=== PATIENT | female | born 1955 | race Caucasian/White ===

== ENCOUNTER → 2016-10-26 | Day surgery (SDC) | payer BC ==
[2016-10-05 10:13] VITALS: Ht 162.6 cm; Wt 90.9 kg
[~2016-10-26] VITALS: Ht 162.6 cm; Wt 90.9 kg
[~2016-10-26] MED LIST: 500ML BSS 0.3ML EPI 1:1000PF IRRIG ONE; ACETAMINOPHEN 325 MG TAB PO PRN; AMVISC PLUS 0.8ML SYRINGE INT OCU ONE; ATROPINE SULFATE 0.1 MG/ML 5ML SYR IV PRN; DOFE500C PO; EpHEDrine SULFATE INJ 50 MG/ML AMP IV PRN; EpINEphrine INJ 1MG/ML AMP 1 MG/ML AMP ONE; FENTANYL CITRATE INJ 50 MCG/1 ML 2 ML VIAL ONE; LACTATED RINGER'S 1000ML 500 ML IV SCH; LIDOCAINE 3.5% OPH GEL PER APPLICATION CHARGE ONE; LIDOCAINE HCL 1% MPF 2 ML VIAL ONE; MECL1TAB40 PO; METO25TA3 PO; MIDAZOLAM HCL 1 MG/ML 2ML VIAL ONE; OCUCOAT 1 ML SOLN IO ONE; POVIDONE-IODINE OP SOLN 30 ML BTL ONE; PROPARACAINE 0.5% OP SOLN PER DROP CHARGE OPR SCH; PRT/20 PO; RIVA1TAB4 PO; SODIUM HYALURONATE 10 MG/ML 0.85 ML SYR INSTIL ONE; TOBRAMYCIN/DEXAMETHASONE OPH OINT PER APPLN CHARGE ONE
[2016-10-26] MEDS: PHENYLEPHRINE HCL 2.5% OP SOLN PER DROP CHARGE OPR SCH ×2 (10:48→10:52)
[2016-10-26] MEDS: TROPICAMIDE 1% OP SOLN PER DROP CHARGE OPR SCH ×2 (10:49→10:54)
[2016-10-26] MEDS: CYCLOPENTOLATE HCL 1% OP SOLN PER DROP CHARGE OPR SCH ×2 (10:49→10:54)
[2016-10-26] MEDS: KETOROLAC 0.5% OP SOLN PER DROP CHARGE OPR SCH ×2 (10:50→10:55)
[2016-10-26] MEDS: GATIFLOXACIN OP SOLN PER DROP CHARGE OPR SCH ×2 (10:51→11:02)
--- NOTE | 2016-10-26 11:11 | History & Physical Bridge - [place] ---
H&P Re-Evaluation Bridge Note: I have examined the patient, reviewed the History & Physical and in the interval since the performance of the History & Physical I have noted the following changes of clinical significance: No changes noted
--- NOTE | 2016-10-26 11:45 | Discharge Instructions-SurgCtr ---
Discharge Instructions Date of Service Oct 26, 2016. Visit Reason for Visit: Cataract Right Eye Discharge Discharge Diagnosis / Problem: cataract Discharge Goals Goal(s): Improve function Activity Recommendations Activity Limitations: per Instructions/Follow-up section Anesthesia . Post Anesthesia Instructions: If you have had General Anesthesia or IV Sedation: * Do not drive today. * Resume driving when surgeon permits. * Do not make important decisions or sign legal documents today. * Call surgeon for: 1. Temperature elevations greater than 101 degrees F. 2. Uncontrollable pain. 3. Excessive bleeding. 4. Persistent nausea and vomiting. 5. Medication intolerance (nausea, vomiting or rash). * For nausea and vomiting use only clear liquids such as: tea, soda, bouillon until nausea subsides, then gradually increase diet as tolerated. * If you have any concerns or questions, call your surgeon's office. If physician is unavailable and it is an emergency, call 911 or go to the nearest emergency room. . Instructions / Follow-Up Instructions / Follow-Up ACTIVITY RECOMMENDATIONS: * No strenuous lifting, jogging or running for 4 days * No swimming or yard work for 1 week. * Limited bending is permitted, such as putting on shoes. RETURN TO SCHOOL/WORK: No work until seen by physician in office. MEDICATIONS: Resume previous medications unless instructed otherwise by your surgeon. This includes eye drops for glaucoma. Zymaxid/Gatifloxacin (wallace cap) - one drop every 2 hours until bedtime Nevanac/Ilevro/Prolensa/Ketorolac (mendoza cap) - one drop every 4 hours until bedtime Prednisolone (white/pink cap, SHAKE WELL) - one drop every 2 hours until bedtime Starting tomorrow - all 3 drops every 4 hours until seen in the office Optive drops - as needed for discomfort SPECIAL CARE INSTRUCTIONS: * Wear eyeshield when sleeping, for four nights. * You may wear your own glasses or sunglasses while awake. * You may read or watch TV * You may shower and wash your face, but be gentle around the eye and pat dry. * Blurry vision and mild irritation are normal. * Call office if pain is more severe or vision becomes dark at . FOLLOW UP VISIT: Follow-up with Dr Duran tomorrow. Diet Recommendations Home Diet: resume previous diet Procedures Procedures Performed: Right Cataract Phacoemulsification With Intraocular Lens Implant; Toric Lens Pending Studies Studies pending at discharge: no Medical Emergencies . Who to Call and When: Medical Emergencies: If at any time you feel your situation is an emergency, please call 911 immediately. . Non-Emergent Contact Non-Emergency issues call your: Email Campaign Specialist . . "Provider Documentation" section prepared by Balaji Duran. .
--- NOTE | 2016-10-26 11:47 | [facility] Operative Report ---
Operative Report Date of Service Oct 26, 2016. Operative Report 1. PREOPERATIVE DIAGNOSIS: Cataract of the right eye. 2. POSTOPERATIVE DIAGNOSIS: Same. 3. PROCEDURE: Phacoemulsification with intraocular lens implantation of the right eye. SURGEON: Dr. Balaji Duran. ANESTHESIA: Topical Lidocaine gel, 1% Non- Preserved intracameral Lidocaine, and monitored intravenous sedation. INDICATIONS FOR THE PROCEDURE: The patient is a 61 - year-old female with a history of cataract of the right eye causing significant visual impairment. The details of the proposed procedure were explained to the patient who asked appropriate questions and following discussion of all risks, benefits and alternatives agreed to have the procedure done. Patient had corneal astigmatism and therefore elected to have a toric lens placed. 4. OPERATION AND FINDINGS: DESCRIPTION OF PROCEDURE: After informed consent was obtained, patient was placed in an upright position and the cornea was marked at 118 degrees using the [employer] corneal marking tool. The the patient was brought to the Operating Room at the [facility]. The patient was placed in a supine position and then the right eye was prepped and draped in the usual sterile fashion for intraocular surgery. A drop of topical Lidocaine gel was placed in the operative eye. A wire lid speculum was then placed in the fornices. A corneal paracentesis was then created temporally. The Non-Preserved Lidocaine was then instilled into the anterior chamber. The anterior chamber was then pressurized with viscoelastic. A 2.0 mm clear corneal incision was then created temporally. A cystotome was inserted into the anterior chamber and used to create a tear in the anterior lens capsule. This capsular tear was then used to create a small flap and the flap was dragged in a counterclockwise direction in order to create a continuous curvilinear capsulorrhexis. Hydrodissection was accomplished with balanced salt solution. Phacoemulsification of the lens nucleus was then performed in a standard divide- and-conquer technique. The phaco time was 21 seconds with an average power of 8 %. The remaining cortical material was removed using irrigation aspiration. The capsular bag was then filled with viscoelastic. A Roberto [id number] +19.5 diopters lens was then loaded into the injector and injected into the capsular bag. The lens was aligned with the previously made corneal farmer. The remaining viscoelastic was removed with the irrigation aspiration handpiece. The wound was hydrated and then checked and found to be watertight. The intraocular pressure was checked and found to be adequate. The wire lid speculum was removed and the patient's face was cleaned and dried. TobraDex ointment was placed in the inferior fornix. The patient was discharged to the Recovery Room having tolerated the procedure well. There were no complications. The patient will be seen tomorrow in the office for follow-up. I attest to the content of the Intraoperative Record and any orders documented therein. Any exceptions are noted below.
[2016-10-26 11:49] VITALS: TEMP 36.6
[2016-10-26 12:09] VITALS: BP 132/81; PULSE 74; O2SAT 98
--- NOTE | 2016-11-03 08:30 | Anesthesia Progress Nt - [facility] ---
Anesthesia Post Op Note Date & Time Nov 03, 2016 at 08:31 Vital Signs Pain Intensity: 0 Notes Mental Status: alert / awake / arousable, participated in evaluation Pt Amnestic to Procedure: Yes Nausea / Vomiting: adequately controlled Pain: adequately controlled Airway Patency, RR, SpO2: stable & adequate BP & HR: stable & adequate Hydration State: stable & adequate Anesthetic Complications: no major complications apparent
== END | disposition home or self-care (01) ==
LOC: X.SURG 10:20
PROVIDERS: ATTEND Ophthalmology
DX: H26.9 Unspecified cataract (principal); K21.9 Gastro-esophageal reflux disease without esophagitis; E66.9 Obesity, unspecified; Z68.34 Body mass index [BMI] 34.0-34.9, adult; G47.33 Obstructive sleep apnea (adult) (pediatric); Z79.01 Long term (current) use of anticoagulants; Z98.890 Other specified postprocedural states; Z98.818 Other dental procedure status; Z85.828 Personal history of other malignant neoplasm of skin; Z87.891 Personal history of nicotine dependence; Z88.1 Allergy status to other antibiotic agents; Z88.2 Allergy status to sulfonamides; Z88.0 Allergy status to penicillin; Z88.7 Allergy status to serum and vaccine; Z83.3 Family history of diabetes mellitus; Z82.49 Family history of ischemic heart disease and other diseases of the circulatory system; Z80.52 Family history of malignant neoplasm of bladder

== ENCOUNTER → 2016-11-09 | Day surgery (SDC) | payer BC ==
[2016-11-04 13:40] VITALS: Ht 162.6 cm; Wt 90.9 kg
[~2016-11-09] VITALS: Ht 162.6 cm; Wt 90.9 kg
[~2016-11-09] MED LIST changes: +BSS FLUSH ONE; -FENTANYL CITRATE INJ 50 MCG/1 ML 2 ML VIAL ONE; +PROPARACAINE 0.5% OP SOLN PER DROP CHARGE OPL SCH; -PROPARACAINE 0.5% OP SOLN PER DROP CHARGE OPR SCH; -SODIUM HYALURONATE 10 MG/ML 0.85 ML SYR INSTIL ONE
[2016-11-09] MEDS: PHENYLEPHRINE HCL 2.5% OP SOLN PER DROP CHARGE OPL SCH ×2 (10:01→10:07)
[2016-11-09] MEDS: TROPICAMIDE 1% OP SOLN PER DROP CHARGE OPL SCH ×2 (10:02→10:08)
[2016-11-09] MEDS: CYCLOPENTOLATE HCL 1% OP SOLN PER DROP CHARGE OPL SCH ×2 (10:04→10:09)
[2016-11-09] MEDS: KETOROLAC 0.5% OP SOLN PER DROP CHARGE OPL SCH ×2 (10:05→10:10)
[2016-11-09] MEDS: GATIFLOXACIN OP SOLN PER DROP CHARGE OPL SCH ×2 (10:06→10:11)
--- NOTE | 2016-11-09 11:11 | Discharge Instructions-SurgCtr ---
Discharge Instructions Date of Service Nov 09, 2016. Visit Reason for Visit: Left Cataract Discharge Discharge Diagnosis / Problem: cataract Discharge Goals Goal(s): Improve function Activity Recommendations Activity Limitations: per Instructions/Follow-up section Anesthesia . Post Anesthesia Instructions: If you have had General Anesthesia or IV Sedation: * Do not drive today. * Resume driving when surgeon permits. * Do not make important decisions or sign legal documents today. * Call surgeon for: 1. Temperature elevations greater than 101 degrees F. 2. Uncontrollable pain. 3. Excessive bleeding. 4. Persistent nausea and vomiting. 5. Medication intolerance (nausea, vomiting or rash). * For nausea and vomiting use only clear liquids such as: tea, soda, bouillon until nausea subsides, then gradually increase diet as tolerated. * If you have any concerns or questions, call your surgeon's office. If physician is unavailable and it is an emergency, call 911 or go to the nearest emergency room. . Instructions / Follow-Up Instructions / Follow-Up ACTIVITY RECOMMENDATIONS: * No strenuous lifting, jogging or running for 4 days * No swimming or yard work for 1 week. * Limited bending is permitted, such as putting on shoes. RETURN TO SCHOOL/WORK: No work until seen by physician in office. MEDICATIONS: Resume previous medications unless instructed otherwise by your surgeon. This includes eye drops for glaucoma. Zymaxid/Gatifloxacin (wallace cap) - one drop every 2 hours until bedtime Nevanac/Ilevro/Prolensa/Ketorolac (mendoza cap) - one drop every 4 hours until bedtime Prednisolone (white/pink cap, SHAKE WELL) - one drop every 2 hours until bedtime Starting tomorrow - all 3 drops every 4 hours until seen in the office Optive drops - as needed for discomfort SPECIAL CARE INSTRUCTIONS: * Wear eyeshield when sleeping, for four nights. * You may wear your own glasses or sunglasses while awake. * You may read or watch TV * You may shower and wash your face, but be gentle around the eye and pat dry. * Blurry vision and mild irritation are normal. * Call office if pain is more severe or vision becomes dark at . FOLLOW UP VISIT: Follow-up with Dr Duran tomorrow. Diet Recommendations Home Diet: resume previous diet Procedures Procedures Performed: Left Eye Cataract Phacoemulsification With Intraocular Lens Implant Pending Studies Studies pending at discharge: no Medical Emergencies . Who to Call and When: Medical Emergencies: If at any time you feel your situation is an emergency, please call 911 immediately. . Non-Emergent Contact Non-Emergency issues call your: Printed Circuit Board Panels Plater . . "Provider Documentation" section prepared by Balaji Duran. .
--- NOTE | 2016-11-09 11:12 | [facility] Operative Report ---
Operative Report Date of Service Nov 09, 2016. Operative Report 1. PREOPERATIVE DIAGNOSIS: Cataract of the left eye. 2. POSTOPERATIVE DIAGNOSIS: Same. 3. PROCEDURE: Phacoemulsification with intraocular lens implantation of the left eye. SURGEON: Dr. Balaji Duran. ANESTHESIA: Topical Lidocaine gel, 1% Non- Preserved intracameral Lidocaine, and monitored intravenous sedation. INDICATIONS FOR THE PROCEDURE: The patient is a 61 - year-old female with a history of cataract of the left eye causing significant visual impairment. The details of the proposed procedure were explained to the patient who asked appropriate questions and following discussion of all risks, benefits and alternatives agreed to have the procedure done. 4. OPERATION AND FINDINGS: DESCRIPTION OF PROCEDURE: After informed consent was obtained, the patient was brought to the Operating Room at the [facility]. The patient was placed in a supine position and then the left eye was prepped and draped in the usual sterile fashion for intraocular surgery. A drop of topical Lidocaine gel was placed in the operative eye. A wire lid speculum was then placed in the fornices. A corneal paracentesis was then created temporally. The Non-Preserved Lidocaine was then instilled into the anterior chamber. The anterior chamber was then pressurized with viscoelastic. A 2.0 mm clear corneal incision was then created temporally. A cystotome was inserted into the anterior chamber and used to create a tear in the anterior lens capsule. This capsular tear was then used to create a small flap and the flap was dragged in a counterclockwise direction in order to create a continuous curvilinear capsulorrhexis. Hydrodissection was accomplished with balanced salt solution. Phacoemulsification of the lens nucleus was then performed in a standard [id number] technique. The phaco time was 19 seconds with an average power of 9 %. The remaining cortical material was removed using irrigation aspiration. The capsular bag was then filled with viscoelastic. A Roberto [id number] +18.5 diopters lens was then loaded into the injector and injected into the capsular bag. The remaining viscoelastic was removed with the irrigation aspiration handpiece. The wound was hydrated and then checked and found to be watertight. The intraocular pressure was checked and found to be adequate. The wire lid speculum was removed and the patient's face was cleaned and dried. TobraDex ointment was placed in the inferior fornix. The patient was discharged to the Recovery Room having tolerated the procedure well. There were no complications. The patient will be seen tomorrow in the office for follow-up. I attest to the content of the Intraoperative Record and any orders documented therein. Any exceptions are noted below.
[2016-11-09 11:15] VITALS: TEMP 36.7
--- NOTE | 2016-11-09 11:22 | Anesthesia Progress Nt - [facility] ---
Anesthesia Post Op Note Date & Time Nov 09, 2016 at 11:21 Vital Signs Pain Intensity: 0 Vital Signs Past 12 Hours Date Time Temp Pulse Resp B/P (MAP) Pulse Ox O2 Delivery O2 Flow Rate FiO2 11/09/16 11:15 36.7 67 16 132/84 (100) 97 Room Air 11/09/16 09:54 37.0 73 16 150/84 (106) 99 Room Air Notes Mental Status: alert / awake / arousable, participated in evaluation Pt Amnestic to Procedure: No Nausea / Vomiting: adequately controlled Pain: adequately controlled Airway Patency, RR, SpO2: stable & adequate BP & HR: stable & adequate Hydration State: stable & adequate Anesthetic Complications: no major complications apparent Non distressing recall as discussed preop
[2016-11-09 11:30] VITALS: BP 123/80; PULSE 76; O2SAT 97
== END | disposition home or self-care (01) ==
LOC: X.SURG 09:27
PROVIDERS: ATTEND Ophthalmology
DX: H26.9 Unspecified cataract (principal); I10 Essential (primary) hypertension; Z98.41 Cataract extraction status, right eye; I48.91 Unspecified atrial fibrillation; Z79.01 Long term (current) use of anticoagulants; E66.9 Obesity, unspecified; Z68.34 Body mass index [BMI] 34.0-34.9, adult; M19.90 Unspecified osteoarthritis, unspecified site; G47.33 Obstructive sleep apnea (adult) (pediatric); Z98.890 Other specified postprocedural states; Z88.0 Allergy status to penicillin; Z88.2 Allergy status to sulfonamides; Z88.1 Allergy status to other antibiotic agents

== ENCOUNTER → 2016-11-26 | Outpatient (CLI) | payer BC ==
[~2016-11-26] MED LIST changes: -500ML BSS 0.3ML EPI 1:1000PF IRRIG ONE; -ACETAMINOPHEN 325 MG TAB PO PRN; -AMVISC PLUS 0.8ML SYRINGE INT OCU ONE; -ATROPINE SULFATE 0.1 MG/ML 5ML SYR IV PRN; -BSS FLUSH ONE; -EpHEDrine SULFATE INJ 50 MG/ML AMP IV PRN; -EpINEphrine INJ 1MG/ML AMP 1 MG/ML AMP ONE; -LACTATED RINGER'S 1000ML 500 ML IV SCH; -LIDOCAINE 3.5% OPH GEL PER APPLICATION CHARGE ONE; -LIDOCAINE HCL 1% MPF 2 ML VIAL ONE; -MIDAZOLAM HCL 1 MG/ML 2ML VIAL ONE; -OCUCOAT 1 ML SOLN IO ONE; -POVIDONE-IODINE OP SOLN 30 ML BTL ONE; -PROPARACAINE 0.5% OP SOLN PER DROP CHARGE OPL SCH; -TOBRAMYCIN/DEXAMETHASONE OPH OINT PER APPLN CHARGE ONE
== END | disposition home or self-care (01) ==
LOC: C.PAPS 14:44
PROVIDERS: ATTEND Obstetrics & Gynecology
DX: Z01.419 Encounter for gynecological examination (general) (routine) without abnormal findings (principal)

== ENCOUNTER → 2016-12-28 | Outpatient (CLI) | payer BC ==
--- NOTE | 2016-12-29 07:43 | MAMMOGRAPHY REPORT ---
BILATERAL DIGITAL SCREENING MAMMOGRAM WITH CAD: 12/28/2016 CLINICAL HISTORY: Routine screening. Patient has no complaints. TECHNIQUE: Bilateral CC, MLO and repeat right cc views with the nipple in profile were obtained. Cur rent study was also evaluated with a Computer Aided Detection (CAD) system. COMPARISON: Comparison is made to exams dated: 11/05/2015 mammogram, 11/01/2014 mammogram, 09/21/2013 ma mmogram, 03/28/2013 mammogram, and 09/20/2012 mammogram - [facility]. BREAST COMPOSITION: There are scattered areas of fibroglandular density in both breasts. FINDINGS: There is a new 4 mm nodular asymmetry in the far superior right breast, only seen on the M LO view, for which additional spot compression tomosynthesis, exaggerated lateral CC views and possib ly ultrasound are recommended. There are scattered punctate microcalcifications, stable in each breast. A stable metallic biopsy ma rker in the anterior subareolar left breast. No other suspicious mass, architectural distortion or c luster of microcalcifications is seen. IMPRESSION: ACR BI-RADS CATEGORY 0: INCOMPLETE EVALUATION: NEED ADDITIONAL IMAGING EVALUATION The new 4 mm nodular asymmetry in the right superior breast needs additional evaluation. The patient will be called to schedule an appointment. Approximately 10% of breast cancers are not detected with mammography. A negative mammographic report should not delay biopsy if a clinically suggestive mass is present. Viki Harris M.D. ay/:12/28/2016 15:34:09 Fisher Clam: Faina MCNAMARA(Jenni)(M), [facility] letter sent: Addl Imaging 0 BI-RADS Code: ACR BI-RADS Category 0: Incomplete Evaluation: Need Additional Imaging Evaluation
== END | disposition home or self-care (01) ==
LOC: C.MAMM 13:28
PROVIDERS: ATTEND Internal Medicine Geriatric Medicine
DX: Z12.31 Encounter for screening mammogram for malignant neoplasm of breast (principal)

== ENCOUNTER → 2017-01-03 | Outpatient (CLI) | payer BC ==
--- NOTE | 2017-01-03 14:33 | MAMMOGRAPHY REPORT ---
UNILATERAL RIGHT DIGITAL DIAGNOSTIC MAMMOGRAM TOMOSYNTHESIS AND TARGETED RIGHT ULTRASOUND: 01/03/2017 CLINICAL HISTORY: 61-year-old woman called back from screening mammography for a small, 4 mm nodular asymmetry in the superior posterior right breast, only seen on the MLO view. She has a prior history of benign left breast stereotactic biopsy. TECHNIQUE: An exaggerated lateral right CC view 2-D and tomosynthesis images and a right MLO 2-D and tomosynthesis view after placement of skin mole markers were obtained. Then additional right CC and MLO tomosynthesis images were obtained after placement of skin BB markers. COMPARISON: Comparison is made to exams dated: 12/28/2016 mammogram, 11/05/2015 mammogram, 11/01/2014 ma mmogram, and 09/21/2013 mammogram - [facility]. BREAST COMPOSITION: There are scattered areas of fibroglandular density in the right breast. FINDINGS: The supplemental mammographic views and tomosynthesis images of the right breast demonstra te a reniform circumscribed 4.3 x 3.1 x 3.0 mm mass in the upper outer posterior right breast. No as sociated architectural distortion or clustered microcalcification. This mass is not denoted by a cir cular marker marker to suggest dermal origin. Further evaluation with ultrasound was performed. Targeted ultrasound was performed in the upper outer quadrant of the right breast. 2 morphologically normal intramammary lymph nodes are seen in the 10:30 axis, 7 cm from the nipple and in the 9:30 to 10:00 axis, 12 cm from the nipple. The small lymph node in the 10:30 axis, 7 cm from the nipple jaya ures 3.4 x 2.8 x 2.8 mm, and the second lymph node measures 3.4 x 2.9 x 4.0 mm. Skin BB markers were placed overlying both of these lymph nodes and CC and MLO tomosynthesis images were obtained. On th e first set of images, the superior BB marker became dislodged and displaced more superiorly. Theref ore it was repositioned and a repeat MLO view was obtained. This repeat view demonstrates alignment of the skin BB marker with the mammographic mass in question, confirming a benign intramammary lymph node. There is no mammographic or targeted sonographic evidence of malignancy. IMPRESSION: ACR BI-RADS CATEGORY 2: BENIGN, TARGETED ULTRASOUND ACR BI-RADS CATEGORY 2: BENIGN The 4 mm nodular asymmetry in the upper outer posterior right breast correlates with a benign intrama mmary lymph node. There is no mammographic or targeted sonographic evidence of malignancy. A 1 year screening mammogram is recommended. The patient has been verbally notified of the results. Approximately 10% of breast cancers are not detected with mammography. A negative mammographic report should not delay biopsy if a clinically suggestive mass is present. Viki Harris M.D. ay/:01/03/2017 12:14:18 Footwear Sales Representative: Virginie TOSCANO)(Polina), [facility] letter sent: Normal 1/2 BI-RADS Code: ACR BI-RADS Category 2: Benign Ultrasound BI-RADS: ACR BI-RADS Category 2: Benign
== END | disposition home or self-care (01) ==
LOC: C.MAMM 10:13
PROVIDERS: ATTEND Internal Medicine Geriatric Medicine
DX: N64.89 Other specified disorders of breast (principal)

== ENCOUNTER → 2017-09-09 | Outpatient (CLI) | payer OTHER ==
--- NOTE | 2017-09-09 12:43 | DIAGNOSTIC IMAGING REPORT ---
CHEST 2 VIEWS ROUTINE CLINICAL HISTORY: R05,786.2 MALAISE COMPARISON STUDY: 07/29/2015 FINDINGS: The cardiac and mediastinal contours are normal. There is no evidence of focal pulmonary consolidation. There is no evidence of failure. No pleural effusions are visualized.[ IMPRESSION: No active disease in the chest. Electronically signed by: Dimas Guillen M.D. 09/09/2017 12:42 PM Dictated Date/Time: 09/09/2017 12:42 PM
[2017-09-09 17:49] LABS: INFLUENZA B ANTIGEN Neg for Influ B (NEG)
== END | disposition home or self-care (01) ==
LOC: C.LABBC 12:13
PROVIDERS: ATTEND Physician Assistant Medical
DX: R05 Cough (principal)

== ENCOUNTER → 2017-12-07 | Outpatient (CLI) | payer OTHER | END | disposition home or self-care (01) | LOC: C.PAPS 11:05 | PROVIDERS: ATTEND Obstetrics & Gynecology | DX: Z01.419 Encounter for gynecological examination (general) (routine) without abnormal findings (principal) ==

== ENCOUNTER 2023-04-18 16:07 | Inpatient (IN) ==
--- NOTE | 2023-04-18 16:11 | ED Triage Note ---
Date of Service April 18, 2023 History of Present Illness This patient was briefly evaluated while in triage. An abbreviated physical exam was performed. This patient is a 67-year-old Female who presents to the ED for evaluation of afib on Eliquis chest pain started today, SOB, cough, fevers sick x 7+ days had an upper resp panel at outside facility and it was negative on Augmentin from PCP Physical Exam GENERAL: NAD CARDIOVASCULAR: RRR RESPIRATORY: CTA ABDOMEN: BS x 4. Nontender to palpation. Initial orders for labs and / or imaging were placed and patient was placed in the waiting area until a bed is available. Please see further documentation for the full ED course.
[2023-04-18 16:34] LABS: Basophils # (auto) 0.03 K/uL (0.00-0.20); Basophils % (auto) 0.3 %; Eosinophils # (auto) 0.04 K/uL (0.00-0.50); Eosinophils % (auto) 0.5 %; Hematocrit (blood only) 45.5 % (37.0-47.0); Hemoglobin 14.6 g/dl (12.0-16.0); Immature Granulocytes # (auto) 0.07 K/uL (0.01-0.20); Immature Granulocytes % (auto) 0.8 %; Lymphocytes # (auto) 2.16 K/uL (1.20-3.40); Lymphocytes % (auto) 24.5 %; Mean Corpuscular Hemoglobin 27.2 pg (25.0-34.0); Mean Corpuscular Hgb Conc 32.1 g/dL (32.0-36.0); Mean Corpuscular Volume 84.7 fL (80.0-100.0); Mean Platelet Volume 9.1 fL (9.4-12.4); Monocytes # (auto) 0.53 K/uL (0.11-0.59); Neutrophils # (auto) 5.98 K/uL (1.40-6.50); Neutrophils % (auto) 67.9 %; Platelet Count 389 K/uL (130-400); RDW Coefficient of Variation 12.9 % (11.5-14.5); RDW Standard Deviation 39.8 fL (36.4-46.3); Red Blood Count 5.37 M/uL (4.20-5.40); White Blood Count 8.81 K/ul (4.8-10.8)
[2023-04-18 16:54] LABS: Albumin Globulin Ratio 1.4 (0.9-2); Albumin Level 4.4 gm/dl (3.4-5.0); BUN Creatinine Ratio 10.7 (10-20); Bilirubin,Total 0.6 mg/dl (0.2-1.0); Calcium 9.1 mg/dl (8.6-10.3); Creatinine Clr Calc Pharmacy 74.6 ml/min; Est GFR (African American) 95.6 ml/min; Est GFR (Non-African American) 82.5 ml/min; Globulin 3.2 gm/dl (2.5-4.0); Potassium 3.7 mmol/L (3.5-5.1); Total Protein 7.6 gm/dl (6.0-8.3)
--- NOTE | 2023-04-18 16:56 | XRay Report ---
TWO VIEW CHEST CLINICAL HISTORY: Atypical chest pain. FINDINGS: PA and lateral chest radiographs are compared to study dated 05/24/2012. The cardiomediastina l silhouette is unremarkable. The lungs and pleural spaces are clear. There is no pneumothorax. The skeletal structures are osteopenic. The bony thorax appears intact. IMPRESSION: No active disease in the chest. ACT 112: Negative or not required by law. Electronically signed by: Be Berrios M.D. 04/18/2023 4:54 PM
[2023-04-18 17:10] LABS: D Dimer 390 ug/L FEU (0-500); Partial Thromboplastin Ratio 1.3; Partial Thromboplastin Time 37.9 Seconds (21.0-31.0); Prothrombin Time 10.8 Seconds (9.0-12.0)
[2023-04-18] MEDS ORDERED: SODIUM CHLORIDE 0.9% 500 ML IV ONE (20:38)
--- NOTE | 2023-04-18 20:40 | Emergency Department Note ---
Impression & Plan Acute cholecystitis ADMIT ED Provider Note HPI: History obtained from patient. The patient is a 67-year-old female with history of paroxysmal atrial fibrillation, currently on Eliquis, who presents emergency department chief complaint of epigastric pain that radiates towards her back. Patient states this developed just earlier today and has been constant throughout the day. Patient denies any vomiting, denies any diarrhea. Patient states she was concerned because the pain did at times feel it was in her chest and therefore came to the ED to be assessed. On arrival here to the ED the patient is hypertensive but otherwise hemodynamically stable, she is in no acute distress on my initial assessment. ROS: - Per HPI Differential Diagnosis: Acute coronary syndrome, acute cholecystitis, choledocholithiasis, acute gastritis, acute pancreatitis, amongst other potential pathologies. *Outpatient medications and allergy history reviewed. PE: General: Alert HEENT: Normocephalic, trachea midline Eyes: Extraocular eye movement is intact, no scleral erythema Pulmonary: Clear to auscultation bilaterally, no wheezing Cardio: Regular rate and rhythm GI: Abdomen is soft to palpation, there is moderate epigastric tenderness to palpation without guarding or rigidity, there is mild right upper quadrant tenderness to palpation : No suprapubic tenderness MSK: No evidence of trauma or malformation of the extremities, no edema Skin: No evidence of rash Neuro: Alert, no focal deficits Psychiatric: Cooperative INDEPENDENT INTERPRETATIONS: patient monitor: (As interpreted by myself): - An order was placed for continuous cardiac monitoring - Patient was noted to be in sinus rhythm with a rate of 70 EKG: (As interpreted by myself): Rate: 88 Rhythm: Normal sinus rhythm Intervals: Within normal limits ST changes: No ST elevation Time: 1616 Chest x-ray: (As interpreted by myself): No acute disease Interventions provided in ED: -IV fluid bolus, IV Tylenol Medical Decision Making: IV was established lab work obtained, patient was placed on playground monitor. Lab work shows no leukocytosis, hemoglobin is normal, platelet count is normal, D-dimer was obtained that is within normal limits, low suspicion for PE. CMP does not show any critical findings, troponin is negative x 1, EKG per my interpretation does not show any evidence of acute ischemic changes. Lipase is also noted to be within normal limits. CT imaging of the abdomen pelvis was obtained that does not show any acute surgical abnormalities, there is cholelithiasis and recommendation was made by the interpreting radiologist to obtain ultrasound imaging of the gallbladder. This was therefore obtained and is suggestive of acute cholecystitis. Delta troponin was obtained and is negative, low suspicion for ACS. Case was discussed with the on-call midlevel provider for the general surgery service, Vinny Bañuelos PA-C, and recommendation was made for admission. Patient is currently on Eliquis and took her last dose at 8 PM therefore will not plan for emergent surgical intervention as she is currently hemodynamically stable. Case was then discussed with the on-call hospitalist, Dr. Sharma, who accepted the patient for inpatient management and general surgery consultation. Patient is in agreement to this plan and she was placed her admission in stable condition. Consultants/Discussions held with other healthcare providers: -Vinny Bañuelos PA-C (general surgery service under attending Dr. Kike Soler) -Dr. Sharma, hospitalist Disposition discussion held by myself with: -Patient Diagnosis: 1. Acute cholecystitis 2. Abdominal pain, acute Disposition: Admission Jaya Villa DO Emergency Medicine Past Med/Surg History Medical History History of anesthesia reaction does not take much anesthesia to put her to sleep; difficulty waking Osteoarthritis Diverticular disease Basal cell carcinoma removed in office History of COVID-19 x2 02/2022 and last 07/09/22--sinus type symptoms (congestion/slight cough)--no symptoms now Osteoarthritis of left knee Obesity (BMI 30-39.9) Obstructive sleep apnea Using CPAP Left knee pain Osteoarthritis of knee Rosacea Paroxysmal atrial fibrillation on eliquis/dofetilide--follows with Dr. Roca External hemorrhoids Chronic anticoagulation eliquis Surgical History S/P left breast biopsy (2012) sterotactic History of colonoscopy (~2006) History of cataract surgery (2016) bilt H/O dilation and curettage History of cardiac radiofrequency ablation (05/2019) x2--first done 2014 and 05/2019 Previous section [place] teeth extracted Family History Father Prostate cancer Diabetes Bladder cancer Mother Lung disease Cancer Hypertension Brother Diabetes Grandmother (Paternal) Myocardial infarction Grandfather (Maternal) Myocardial infarction Grandmother (Maternal) Stroke Other Anemia No family history of adverse response to anesthesia Denies family history of Ovarian cancer Lung cancer Colorectal cancer Social History Smoking Status: Never smoker Age Started Using Tobacco: 17; Age Quit Using Tobacco: 40; packs per day: 1; Second Hand Exposure: No; Do You Dip or Chew Tobacco: No; Hx Alcohol Use: Yes Alcohol type: wine and hard liquor Alcohol Intake Frequency: 2-4 x/Month Hx Substance Use: No Preferred Language: Lithuanian Communication Ability: Effective Visual Impairment: Limited Hearing Ability: Normal [employer] 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: No Beliefs That Will Affect Care: None marital status: Current Living Situation: Spouse and Family current occupational status: retired 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[employer], 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 How many Children do You have: 1 Feels Safe at Home: Yes Childhood Exposure to Second-Hand Smoke: No caffeine: Yes (rarely) Dental Care, Regularly: Yes Physical Activity Frequency: Daily Seatbelt Use: always Sunscreen Use: Yes Assistive Devices: Glasses Allergies Allergies Allergy/AdvReac Type Severity Reaction Status Date / Time nitrofurantoin Allergy Severe ANAPHYLAXIS Verified 12/17/22 11:35 Tetanus Vaccines and Toxoid Allergy Severe "large Verified 12/17/22 11:35 lump on arm that lasted for months" Calcium Channel Blocking Allergy Intermediate severe leg Verified 12/17/22 11:35 Agent Dilt swelling thimerosal Allergy Intermediate red, Verified 12/17/22 11:35 painful eyes clindamycin Allergy Unknown Unknown Verified 12/17/22 11:35 cephalexin [From Keflex] AdvReac Intermediate Gastrointestinal Verified 12/17/22 11:35 Upset ciprofloxacin [From Cipro] AdvReac Intermediate Gastrointestinal Verified 12/17/22 11:35 Upset Sulfa (Sulfonamide AdvReac Intermediate DISORIENTAT Verified 12/17/22 11:35 Antibiotics) ION Home Meds Home Medications Medication Instructions Recorded Confirmed dofetilide 500 mcg capsule 500 mcg PO BID 12/20/18 04/19/23 (Tikosyn) apixaban 5 mg tablet (Eliquis) 5 mg PO BID 12/17/22 04/19/23 Previous Rx's Medication Instructions Recorded levalbuterol tartrate 45 1 puff inhalation DAILY PRN 11/01/22 mcg/actuation aerosol inhaler Shortness Of Breath Or Wheezing #15 grams sacubitril 24 mg-valsartan 26 mg 1 tab PO BID #60 tabs 08/12/22 tablet (Entresto) amoxicillin 875 mg-potassium 1 tab PO BID #14 tabs 04/18/23 clavulanate 125 mg tablet Results & Data (ED) Vital Signs Vital Signs - 24 hr 04/18/23 16:09 04/18/23 20:43 04/18/23 20:43 Temperature 36.9 C Temperature Source Temporal Artery Scan Pulse Rate 86 Pulse Rate [Finger] 70 Pulse Rate from SpO2 Sensor Pulse Rhythm [Finger] Regular Respiratory Rate 20 14 Respiratory Effort / Characteristics Non-Labored Non-Labored Spontaneous Respiratory Depth Normal Normal Respiratory Pattern Regular Blood Pressure 168/95 H Blood Pressure [Left Arm] 153/77 H Blood Pressure Mean 119 Blood Pressure Mean [Left Arm] 102 Pulse Oximetry 98 98 Oxygen Delivery Method Room Air Room Air Room Air Sepsis Recent Fever Within 48 Hours No Sepsis New/Unexplained Change in Mental Status No Sepsis Action Taken by Nursing No Action Required 04/18/23 20:43 04/18/23 20:43 04/18/23 20:43 Temperature Temperature Source Pulse Rate 73 75 Pulse Rate [Finger] Pulse Rate from SpO2 Sensor 73 Pulse Rhythm [Finger] Respiratory Rate 15 Respiratory Effort / Characteristics Respiratory Depth Respiratory Pattern Blood Pressure Blood Pressure [Left Arm] Blood Pressure Mean Blood Pressure Mean [Left Arm] Pulse Oximetry 99 Oxygen Delivery Method Room Air Sepsis Recent Fever Within 48 Hours Sepsis New/Unexplained Change in Mental Status Sepsis Action Taken by Nursing 04/18/23 21:18 04/18/23 21:30 04/18/23 22:00 Temperature Temperature Source Pulse Rate 77 71 65 Pulse Rate [Finger] Pulse Rate from SpO2 Sensor 70 72 Pulse Rhythm [Finger] Respiratory Rate 12 14 13 Respiratory Effort / Characteristics Respiratory Depth Respiratory Pattern Blood Pressure 145/82 H 135/79 Blood Pressure [Left Arm] Blood Pressure Mean 103 97 Blood Pressure Mean [Left Arm] Pulse Oximetry 98 98 Oxygen Delivery Method Sepsis Recent Fever Within 48 Hours Sepsis New/Unexplained Change in Mental Status Sepsis Action Taken by Nursing 04/18/23 23:20 04/18/23 23:30 04/18/23 23:30 Temperature Temperature Source Pulse Rate 78 64 Pulse Rate [Finger] Pulse Rate from SpO2 Sensor 64 Pulse Rhythm [Finger] Respiratory Rate 18 Respiratory Effort / Characteristics Respiratory Depth Respiratory Pattern Blood Pressure 114/69 Blood Pressure [Left Arm] Blood Pressure Mean 79 Blood Pressure Mean [Left Arm] Pulse Oximetry 96 Oxygen Delivery Method Sepsis Recent Fever Within 48 Hours Sepsis New/Unexplained Change in Mental Status Sepsis Action Taken by Nursing 04/19/23 00:00 04/19/23 00:00 04/19/23 00:47 Temperature Temperature Source Pulse Rate 80 72 Pulse Rate [Finger] Pulse Rate from SpO2 Sensor 78 Pulse Rhythm [Finger] Respiratory Rate 13 Respiratory Effort / Characteristics Respiratory Depth Respiratory Pattern Blood Pressure 128/90 Blood Pressure [Left Arm] Blood Pressure Mean 102 Blood Pressure Mean [Left Arm] Pulse Oximetry 93 Oxygen Delivery Method Sepsis Recent Fever Within 48 Hours Sepsis New/Unexplained Change in Mental Status Sepsis Action Taken by Nursing Laboratory Data 04/18/23 16:19 04/18/23 16:19 Lab Results 04/18/23 04/18/23 04/18/23 Range/Units 16:19 18:57 21:21 WBC 8.81 (4.8-10.8) K/ul RBC 5.37 (4.20-5.40) M/uL Hgb 14.6 (12.0-16.0) g/dl Hct 45.5 (37.0-47.0) % MCV 84.7 (80.0-100.0) fL MCH 27.2 (25.0-34.0) pg MCHC 32.1 (32.0-36.0) g/dL RDW Std Deviation 39.8 (36.4-46.3) fL RDW Coeff of Anna 12.9 (11.5-14.5) % Plt Count 389 (130-400) K/uL MPV 9.1 L (9.4-12.4) fL Immature Gran % (Auto) 0.8 % Neut % (Auto) 67.9 % Lymph % (Auto) 24.5 % [facility] % (Auto) 6.0 % Eos % (Auto) 0.5 % Baso % (Auto) 0.3 % Neut # (Auto) 5.98 (1.40-6.50) K/uL Lymph # (Auto) 2.16 (1.20-3.40) K/uL [facility] # (Auto) 0.53 (0.11-0.59) K/uL Eos # (Auto) 0.04 (0.00-0.50) K/uL Baso # (Auto) 0.03 (0.00-0.20) K/uL Immature Gran # (Auto) 0.07 (0.01-0.20) K/uL PT 10.8 (9.0-12.0) Seconds INR 1.0 (0.9-1.1) APTT 37.9 H (21.0-31.0) Seconds PTT Ratio 1.3 D-Dimer 390 (0-500) ug/L FEU Sodium 140 (136-145) mmol/L Potassium 3.7 (3.5-5.1) mmol/L Chloride 104 (98-107) mmol/L Carbon Dioxide 27 (21-32) mmol/L Anion Gap 9 (3-11) BUN 8 (6-23) mg/dl Creatinine 0.75 (0.6-1.2) mg/dl Est Cr Clr Drug Dosing 74.6 ml/min Est GFR ( Amer) 95.6 ml/min Est GFR (Non-Af Amer) 82.5 ml/min BUN/Creatinine Ratio 10.7 (10-20) Glucose 121 H (70-99(Fasting)) mg/dl Calcium 9.1 (8.6-10.3) mg/dl Total Bilirubin 0.6 (0.2-1.0) mg/dl AST 30 (13-39) U/L ALT 19 (7-52) U/L Alkaline Phosphatase 81 (34-104) U/L Troponin I High Sens 4.0 4.7 (0-14) pg/ml Total Protein 7.6 (6.0-8.3) gm/dl Albumin 4.4 (3.4-5.0) gm/dl Globulin 3.2 (2.5-4.0) gm/dl Albumin/Globulin Ratio 1.4 (0.9-2) Lipase 25 (11-82) U/L Adenovirus (PCR) Not Detected (NotDetected) B. pertussis DNA (PCR) Not Detected (NotDetected) B.parapertussis DNA PCR Not Detected (NotDetected) C. pneumoniae DNA (PCR) Not Detected (NotDetected) Coronavirus OC43 (PCR) Not Detected (NotDetected) Coronavirus HKU1 (PCR) Not Detected (NotDetected) Coronavirus 229E (PCR) Not Detected (NotDetected) SARS-CoV-2 (PCR) Not Detected (NotDetected) Coronavirus NL63 (PCR) Not Detected (NotDetected) Human Metapneumovir PCR Not Detected (NotDetected) Influenza Type A (PCR) Not Detected (NotDetected) Influenza Type B (PCR) Not Detected (NotDetected) M. pneumoniae (PCR) Not Detected (NotDetected) Parainfluenza 1 (PCR) Not Detected (NotDetected) Parainfluenza 2 (PCR) Not Detected (NotDetected) Parainfluenza 3 (PCR) Not Detected (NotDetected) Parainfluenza 4 (PCR) Not Detected (NotDetected) RSV (PCR) Not Detected (NotDetected) Entero/Rhino (PCR) Not Detected (NotDetected) Administered Medications Discontinued Medications Sodium Chloride (Nss) 500 mls @ 999 mls/hr IV .Q31M ONE Stop: 04/18/23 21:08 Last Infusion: 04/18/23 21:48 Dose: Infused Documented By: Admin: 04/18/23 20:46 Dose: 999 mls/hr Documented By: MARLENI Acetaminophen (Ofirmev) 1,000 mg in 100 mls @ 400 mls/hr IV NOW STA Stop: 04/18/23 23:04 Last Infusion: 04/18/23 23:48 Dose: Infused Documented By: Admin: 04/18/23 23:24 Dose: 400 mls/hr Documented By: MARLENI Ioversol (Optiray 320 500ml) 90 ml IV ONCE ONE Stop: 04/18/23 21:03 Last Admin: 04/18/23 21:03 Dose: 90 ml Documented By: MANDO Imaging Data Radiologist's Impression: Chest X-Ray 04/18/23 16:11 TWO VIEW CHEST CLINICAL HISTORY: Atypical chest pain. FINDINGS: PA and lateral chest radiographs are compared to study dated 05/24/2012. The cardiomediastinal silhouette is unremarkable. The lungs and pleural spaces are clear. There is no pneumothorax. The skeletal structures are osteopenic. The bony thorax appears intact. IMPRESSION: No active disease in the chest. ACT 112: Negative or not required by law. Electronically signed by: Be Berrios M.D. 04/18/2023 4:54 PM Abdomen/Pelvis CT 04/18/23 20:37 Exam(s): CT ABDOMEN + PELVIS With Contrast IV Amt: 90 ml optiray 320 EXAM: CT Abdomen and Pelvis With Intravenous Contrast CLINICAL HISTORY: Reason for exam: upper abd pain. TECHNIQUE: Axial computed tomography images of the abdomen and pelvis with intravenous contrast. CTDI is 25.82 mGy and DLP is 1117.61 mGy-cm. Automated exposure control was utilized for the study. A dose lowering technique was utilized adhering to the principles of ALARA. CONTRAST: Patient received 90 ml optiray 320 of IV contrast COMPARISON: No relevant prior studies available. FINDINGS: Lung bases: Unremarkable. No mass. No consolidation. ABDOMEN: Liver: Hepatic steatosis. Gallbladder and bile ducts: Cholelithiasis. No ductal dilation. Pancreas: Unremarkable. No mass. No ductal dilation. Spleen: Unremarkable. No splenomegaly. Adrenals: Unremarkable. No mass. Kidneys and ureters: Unremarkable. No solid mass. No hydronephrosis. Stomach and bowel: Diverticulosis, without acute diverticulitis. No small bowel obstruction. No free intraperitoneal air. PELVIS: Appendix: Normal appendix. Bladder: Unremarkable. No mass. Reproductive: Unremarkable as visualized. ABDOMEN and PELVIS: Intraperitoneal space: Unremarkable. No free air. No significant fluid collection. Bones/joints: No acute fracture. No dislocation. Soft tissues: Unremarkable. Vasculature: Unremarkable. No abdominal aortic aneurysm. Lymph nodes: Unremarkable. No enlarged lymph nodes. IMPRESSION: 1. Normal appendix. 2. Hepatic steatosis. 3. Cholelithiasis. Ultrasound recommended. 4. Diverticulosis, without acute diverticulitis. No small bowel obstruction. No free intraperitoneal air. Electronically signed by: Shane Carmen MD 04/18/23 21:21 PM Gallbladder Ultrasound 04/18/23 21:43 Exam(s): US GALLBLADDER EXAM: US Abdomen Limited, Gallbladder CLINICAL HISTORY: Reason for exam: upper abd pain. TECHNIQUE: Real-time ultrasound of the right upper quadrant with image documentation. COMPARISON: No relevant prior studies available. FINDINGS: Gallbladder: Cholelithiasis. Gallbladder sludge. Mild pericholecystic free fluid. Gallbladder wall thickening measures 6 mm. Findings are consistent with acute cholecystitis. Common bile duct: 4 mm common bile duct. No stones. No dilation. Pancreas: Unremarkable as visualized. IMPRESSION: Cholelithiasis. Gallbladder sludge. Mild pericholecystic free fluid. Gallbladder wall thickening measures 6 mm. Findings are consistent with acute cholecystitis. Electronically signed by: Shane Carmen MD 04/19/23 00:14 AM Discharge Plan Visit Data Chief Complaint: Chest Pain Stated Complaint: CHEST/BACK PAIN, SOB, COUGH, CONGESTION, NAUSEA ED Provider: Jaya Villa Discharge Problem: Acute cholecystitis Forms Stand Alone Forms: [facility] [employer] Prescriptions Prescriptions: No Action Entresto 24-26 mg tablet 1 tab PO BID Qty: 60 2RF Eliquis 5 mg tablet 5 mg PO BID amoxicillin-pot clavulanate 875-125 mg tablet 1 tab PO BID Qty: 14 0RF dofetilide [Tikosyn] 500 mcg capsule 500 mcg PO BID Rx Instructions: must be brand levalbuterol tartrate 45 mcg/actuation HFA aerosol inhaler 1 puff inhalation DAILY PRN (Reason: Shortness Of Breath Or Wheezing) Qty: 15 6RF Referrals Referrals: Lester Oliver DO [Primary Care Provider] -
[2023-04-18] MEDS ORDERED: OPTIRAY 320 500ml IV ONE (21:02)
--- NOTE | 2023-04-18 21:22 | CT Scan Report ---
Exam(s): CT ABDOMEN + PELVIS With Contrast IV Amt: 90 ml optiray 320 EXAM: CT Abdomen and Pelvis With Intravenous Contrast CLINICAL HISTORY: Reason for exam: upper abd pain. TECHNIQUE: Axial computed tomography images of the abdomen and pelvis with intravenous contrast. CTDI is 25.82 mGy and DLP is 1117.61 mGy-cm. Automated exposure control was utilized for the study. A dose lowering technique was utilized adhering to the principles of ALARA. CONTRAST: Patient received 90 ml optiray 320 of IV contrast COMPARISON: No relevant prior studies available. FINDINGS: Lung bases: Unremarkable. No mass. No consolidation. ABDOMEN: Liver: Hepatic steatosis. Gallbladder and bile ducts: Cholelithiasis. No ductal dilation. Pancreas: Unremarkable. No mass. No ductal dilation. Spleen: Unremarkable. No splenomegaly. Adrenals: Unremarkable. No mass. Kidneys and ureters: Unremarkable. No solid mass. No hydronephrosis. Stomach and bowel: Diverticulosis, without acute diverticulitis. No small bowel obstruction. No free intraperitoneal air. PELVIS: Appendix: Normal appendix. Bladder: Unremarkable. No mass. Reproductive: Unremarkable as visualized. ABDOMEN and PELVIS: Intraperitoneal space: Unremarkable. No free air. No significant fluid collection. Bones/joints: No acute fracture. No dislocation. Soft tissues: Unremarkable. Vasculature: Unremarkable. No abdominal aortic aneurysm. Lymph nodes: Unremarkable. No enlarged lymph nodes. IMPRESSION: 1. Normal appendix. 2. Hepatic steatosis. 3. Cholelithiasis. Ultrasound recommended. 4. Diverticulosis, without acute diverticulitis. No small bowel obstruction. No free intraperitoneal air. Electronically signed by: Shane Carmen MD 04/18/23 21:21 PM
[2023-04-18 22:19] LABS: Adenovirus PCR Not Detected (NotDetected); Bordetella parapertussis PCR Not Detected (NotDetected); Bordetella pertussis PCR Not Detected (NotDetected); Chlamydia pneumoniae PCR Not Detected (NotDetected); Coronavirus 229E PCR Not Detected (NotDetected); Coronavirus CoV-2 (COVID19)PCR Not Detected (NotDetected); Coronavirus HKU1 PCR Not Detected (NotDetected); Coronavirus NL63 PCR Not Detected (NotDetected); Coronavirus OC43PCR Not Detected (NotDetected); Human Metapneumovirus PCR Not Detected (NotDetected); Influenza A PCR Not Detected (NotDetected); Influenza B PCR Not Detected (NotDetected); Mycoplasma pneumoniae PCR Not Detected (NotDetected); Parainfluenza Virus 1 PCR Not Detected (NotDetected); Parainfluenza Virus 2 PCR Not Detected (NotDetected); Parainfluenza Virus 3 PCR Not Detected (NotDetected); Parainfluenza Virus 4 PCR Not Detected (NotDetected); Respiratory Syncytial VirusPCR Not Detected (NotDetected); Rhinovirus/Enterovirus PCR Not Detected (NotDetected)
[2023-04-18] MEDS ORDERED: ACETAMINOPHEN 1,000 MG/100 ML VIAL IV STA (22:50)
--- NOTE | 2023-04-19 00:14 | Ultrasound Report ---
Exam(s): US GALLBLADDER EXAM: US Abdomen Limited, Gallbladder CLINICAL HISTORY: Reason for exam: upper abd pain. TECHNIQUE: Real-time ultrasound of the right upper quadrant with image documentation. COMPARISON: No relevant prior studies available. FINDINGS: Gallbladder: Cholelithiasis. Gallbladder sludge. Mild pericholecystic free fluid. Gallbladder wall thickening measures 6 mm. Findings are consistent with acute cholecystitis. Common bile duct: 4 mm common bile duct. No stones. No dilation. Pancreas: Unremarkable as visualized. IMPRESSION: Cholelithiasis. Gallbladder sludge. Mild pericholecystic free fluid. Gallbladder wall thickening measures 6 mm. Findings are consistent with acute cholecystitis. Electronically signed by: Shane Carmen MD 04/19/23 00:14 AM
--- NOTE | 2023-04-19 01:06 | Surgery Consultation ---
Date of Consultation April 19, 2023 Assessment & Plan (1) Cholecystitis: I discussed with the treating emergency room physician the patient is being admitted on the hospital service. From surgical perspective we recommend proceeding as follows: I suspect the patient would benefit from cholecystectomy at some point in the future. However, the patient did take her Eliquis (evening dose) on 04/18/2023. Would be preferable to have the patient abstain from taking Eliquis for several days to minimize the risk of perioperative bleeding. In addition, the patient's recent upper respiratory symptoms may cause a delay in her surgery as well. At the present time the patient is afebrile and normotensive without tachycardia. She also does not exhibit leukocytosis. She is not jaundiced and does not exhibit signs or symptoms of cholangitis. Therefore an emergent surgical procedure is not required at this time. I feel the patient would be able to have clear liquids for the present time Antibiotics to be initiated. Patient reports numerous allergies but notes that she can take penicillin type medications and recently took a partial course of oral Augmentin. Therefore I believe Zosyn will be an acceptable choice for antibiotic Hydration measures with IV fluids to be employed but should be done so cautiously due to patient's underlying cardiac history. Would recommend following serial labs Analgesics to be provided Antiemetics to be provided Additional recommendations be forthcoming based on her clinical course as it unfolds Supervising Physician Co-Signing Physician Notes I personally saw and evaluated the patient with Vinny Bañuelos PA-C and agree with the assessment plan. 67-year-old female with acute cholecystitis Ultrasound and CT images were personally viewed and interpreted by myself She does have a distended gallbladder with wall thickening consistent with cholecystitis She has been admitted to the medical service She did take her Eliquis last night We will plan on laparoscopic cholecystectomy, possible open tomorrow afternoon Please make her n.p.o. after midnight hold her Lovenox and Eliquis History of Present Illness Reason for Consultation: Cholecystitis History of Present Illness This is a 67-year-old female who presented to the hospital secondary to abdominal pain. Patient notes that she has had on/off abdominal pain greatest in the upper abdomen in the right upper quadrant for several days. She says that the pain radiates to her back and appears to be worse after eating. She specifically notes the pain seems to be precipitated anywhere from 30 minutes to an hour after eating. She has had nausea without vomiting. She does report that she has had low-grade temperatures up to 100.2. Patient does note that over the past several months she has had postprandial pain. Her current presenting symptomatology is improved when she does not eat and is worse after eating. She does report previous abdominal surgeries in the form of a C- section. The patient does report that she has a known history of gallstones. She has had a CT scan of the abdomen pelvis on 05/22/2022 that showed patient had cholelithiasis with gallbladder distention and no convincing evidence for cholecystitis. She notes that the reason she had the CT scan was for abdominal pain at which time she was found to have diverticulitis. She did not require admission to the hospital for this problem. The patient further reports that approximately and 1/2 weeks ago she developed cold-like symptoms. Her symptoms included a sore throat along with a cough and upper respiratory congestion. The patient was placed on a course of Augmentin but she only took it for 4 days as her symptoms started to improve and she felt that the Augmentin upset her stomach. She does feel as though the symptoms have improved. The patient also further relates that she does have a history of paroxysmal atrial fibrillation. She has undergone 2 cardiac ablations. The patient does note that she tries to exercise daily utilizing an exercise bike. She says that she is able to perform activities on the exercise bike without shortness of breath or chest pain but does admit that she does get short of breath when she attempts to walk up inclines. She denies any recent weight gain or lower extremity edema. She does follow with her firer locomotive Dr. Hipolito Lester of [facility] cardiology locally. She further adds that she does take Eliquis for her history of paroxysmal atrial fibrillation and her most recent dose was on 04/18/2023 at 8:00 PM. Since arrival to the hospital patient has had labs and imaging which I independent reviewed. Chest x-ray showed no active disease in the chest. A CT scan of the abdomen pelvis showed the patient had cholelithiasis. There is no biliary ductal dilatation. There is no intraperitoneal free air or fluid collection in the abdomen. The appendix appeared normal on this study. A gallbladder ultrasound showed cholelithiasis with gallbladder sludge. There is pericholecystic free fluid noted in gallbladder wall thickening up to 6 mm which were felt to be consistent with cholecystitis. Labs included CBC her white blood cell count, hemoglobin, hematocrit, and platelet count were normal. Coagulation studies showed an INR of 1.0. Chemistry profile showed sodium and potassium along with the BUN and creatinine were normal. Patient's total bilirubin, transaminases, and alkaline phosphatase were all nonelevated. The li pase was nonelevated. The patient had a bio fire study checked which was negative for all viruses tested including COVID 19 and influenza. An EKG showed normal sinus rhythm. There not appear to be any changes indicative of acute ischemia. At the time of my interview the patient was resting comfortably in bed and she was in no distress. Allergies Allergy/AdvReac Type Severity Reaction Status Date / Time nitrofurantoin Allergy Severe ANAPHYLAXIS Verified 12/17/22 11:35 Tetanus Vaccines and Toxoid Allergy Severe "large Verified 12/17/22 11:35 lump on arm that lasted for months" Calcium Channel Blocking Allergy Intermediate severe leg Verified 12/17/22 11:35 Agent Dilt swelling thimerosal Allergy Intermediate red, Verified 12/17/22 11:35 painful eyes clindamycin Allergy Unknown Unknown Verified 12/17/22 11:35 cephalexin [From Keflex] AdvReac Intermediate Gastrointestinal Verified 12/17/22 11:35 Upset ciprofloxacin [From Cipro] AdvReac Intermediate Gastrointestinal Verified 12/17/22 11:35 Upset Sulfa (Sulfonamide AdvReac Intermediate DISORIENTAT Verified 12/17/22 11:35 Antibiotics) ION Home Medications Medication Instructions Recorded Confirmed Type dofetilide 500 mcg capsule 500 mcg PO BID 12/20/18 04/19/23 History (Tikosyn) levalbuterol tartrate 45 1 puff inhalation DAILY PRN 03/23/22 04/19/23 Rx mcg/actuation aerosol inhaler Shortness Of Breath Or Wheezing #15 grams sacubitril 24 mg-valsartan 26 mg 1 tab PO BID #60 tabs 08/12/22 04/19/23 Rx tablet (Entresto) apixaban 5 mg tablet (Eliquis) 5 mg PO BID 12/17/22 04/19/23 History amoxicillin 875 mg-potassium 1 tab PO BID #14 tabs 04/18/23 04/19/23 Rx clavulanate 125 mg tablet Patient History Medical History History of anesthesia reaction does not take much anesthesia to put her to sleep; difficulty waking Osteoarthritis Diverticular disease Basal cell carcinoma removed in office History of COVID-19 x2 02/2022 and last 07/09/22--sinus type symptoms (congestion/slight cough)--no symptoms now Osteoarthritis of left knee Obesity (BMI 30-39.9) Obstructive sleep apnea Using CPAP Left knee pain Osteoarthritis of knee Rosacea Paroxysmal atrial fibrillation on eliquis/dofetilide--follows with Dr. Roca External hemorrhoids Chronic anticoagulation eliquis Surgical History S/P left breast biopsy (2012) sterotactic History of colonoscopy (~2006) History of cataract surgery (2016) bilt H/O dilation and curettage History of cardiac radiofrequency ablation (05/2019) x2--first done 2014 and 05/2019 Previous section [place] teeth extracted Family History Father Prostate cancer Diabetes Bladder cancer Mother Lung disease Cancer Hypertension Brother Diabetes Grandmother (Paternal) Myocardial infarction Grandfather (Maternal) Myocardial infarction Grandmother (Maternal) Stroke Other Anemia No family history of adverse response to anesthesia Denies family history of Ovarian cancer Lung cancer Colorectal cancer Social History Smoking Status: Former smoker Tobacco Type: Cigarettes Age Started Using Tobacco: 17; Age Quit Using Tobacco: 40; packs per day: 1; Second Hand Exposure: No; Do You Dip or Chew Tobacco: No; Hx Alcohol Use: Yes Alcohol type: wine and hard liquor Alcohol Intake Frequency: 2-4 x/Month Hx Substance Use: No Preferred Language: Citizen Of [place] Communication Ability: Effective Visual Impairment: Limited Hearing Ability: Normal Psychologist Experimental Required: No Beliefs That Will Affect Care: None marital status: Current Living Situation: Spouse current occupational status: retired 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[employer], 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 How many Children do You have: 1 Other Information That Helps Us Care for You: No Feels Safe at Home: Yes Safety Concerns: Feels Safe At This Time Childhood Exposure to Second-Hand Smoke: No caffeine: Yes (rarely) Dental Care, Regularly: Yes Physical Activity Frequency: Daily Seatbelt Use: always Sunscreen Use: Yes Assistive Devices: Glasses Review of Systems Constitutional: + fever (Low-grade as high as 100.2); no chills Eyes: + corrective lenses Ear, Nose, Mouth, Throat: + nasal congestion; no hearing loss Respiratory: + cough and + chest congestion Cardiovascular: no chest pain Gastrointestinal: as per Subjective / HPI Genitourinary: no dysuria Musculoskeletal: no back pain Integumentary: no rash Neurologic: no localized weakness Physical Exam Constitutional: WD/WN, vitals as above Eyes: + anicteric sclerae Wears glasses ENMT: Ears: no hearing impairment and no external ear abnormality Sub lingual jaundice is absent Neck: trachea midline Respiratory: normal respiratory effort, lungs clear to auscultation No wheezing or rhonchi noted Cardiovascular: Rate/Rhythm: regular rate and regular rhythm Gastrointestinal (Abdomen): Abdomen is soft and nonrigid. It is nondistended. There is no rebound tenderness or guarding. The patient did have pain with palpation greatest in the right upper quadrant with a positive Smith sign. Musculoskeletal: No calf tenderness. No lower extremity edema Skin: no rashes and no jaundice Neurologic: moves all extremities Psychiatric: A+Ox3, euthymic affect Results & Data Vital Signs (Past 12 Hours) Vital Signs Temp Pulse Pulse Resp BP BP Pulse Ox 04/19/23 00:47 72 04/19/23 00:00 80 13 93 04/19/23 00:00 128/90 04/18/23 23:30 64 18 96 04/18/23 23:30 114/69 04/18/23 23:20 78 04/18/23 22:00 65 13 135/79 98 04/18/23 21:30 71 14 145/82 H 98 04/18/23 21:18 77 12 04/18/23 20:43 75 15 99 04/18/23 20:43 73 04/18/23 20:43 04/18/23 20:43 70 14 153/77 H 98 04/18/23 20:43 04/18/23 16:09 36.9 C 86 20 168/95 H 98 O2 Del Method 04/19/23 00:47 04/19/23 00:00 04/19/23 00:00 04/18/23 23:30 04/18/23 23:30 04/18/23 23:20 04/18/23 22:00 04/18/23 21:30 04/18/23 21:18 04/18/23 20:43 04/18/23 20:43 04/18/23 20:43 Room Air 04/18/23 20:43 Room Air 04/18/23 20:43 Room Air 04/18/23 16:09 Room Air PG Care Time/CCT Total # of Minutes Spent Total Time Spent with Patient: Total time spent is greater than 50% in coordination of care (as documented) at patient's floor/unit and/or counseling patient: Coding Level of Care Code 80296 INT INP/OBS CARE MIN Diagnoses Cholecystitis K81.9
--- NOTE | 2023-04-19 01:34 | History & Physical Report ---
Date of Service April 19, 2023 Assessment & Plan (1) Cholecystitis: Plan: 67yo female with history of paroxysmal atrial fibrillation on Eliquis anticoagulation and Dofetilide, NINOSKA, HTN and HFpEF presenting with abdominal pain. Imaging suggestive of acute cholecystitis with presence of gallstones. Patient is afebrile, HD stable and non-toxic in appearance. Her abdomen is soft and moderately tender. Labs are largely unremarkable including normal WBC count as well as normal LFTs. -Observation to medical -Continue to hold Apixaban. Last dose 04/18/23 at 20:00 -Zosyn 4.5 gm IV q 8hr -Tylenol as needed for pain -Zofran as needed for nausea- cautious use with patient's Dofetilide -Appreciate General Surgery assistance -Clear liquid diet for now -Hold Entresto for now (2) Paroxysmal atrial fibrillation: Plan: Patient presently in sinus rhythm. -Hold Apixaban. Will not bridge anticoagulation at this time - [id number] score of 4 (Age 67, female with history of CHF and HTN) -Continue Dofetilide (3) Obstructive sleep apnea: Plan: Chronic. Stable -Continue CPAP qHS - nasal pillows, 7cmH2O F/E/N - Saline lock, electrolytes WNL, repeat chemistry in AM, Clear liquids for now Ppx - Lovenox 40u qAM Code - Full Dispo - Observation to medical History of Present Illness Chief Complaint: abdominal pain Primary Care Provider: DO Heidi Reich Cassandra is a pleasant 67yo female with history of PAF on Eliquis anticoagulation and Dofetilide, NINOSKA, GERD and HFpEF presenting from home with several weeks of intermittent abdominal pain. Patient reports she has had episodes of abdominal pain over the last several weeks - worse after meals. Today her pain was more severe than usual with radiation into her back. She has been having URI symptoms for the last several days as well - severe cough as well as fever and chills. She has been on Augmentin for the last several days. Last Eliquis dose was 04/18/23 at 20:00 ER Course: Tylenol NSS Allergies Allergy/AdvReac Type Severity Reaction Status Date / Time nitrofurantoin Allergy Severe ANAPHYLAXIS Verified 12/17/22 11:35 Tetanus Vaccines and Toxoid Allergy Severe "large Verified 12/17/22 11:35 lump on arm that lasted for months" Calcium Channel Blocking Allergy Intermediate severe leg Verified 12/17/22 11:35 Agent Dilt swelling thimerosal Allergy Intermediate red, Verified 12/17/22 11:35 painful eyes clindamycin Allergy Unknown Unknown Verified 12/17/22 11:35 cephalexin [From Keflex] AdvReac Intermediate Gastrointestinal Verified 12/17/22 11:35 Upset ciprofloxacin [From Cipro] AdvReac Intermediate Gastrointestinal Verified 12/17/22 11:35 Upset Sulfa (Sulfonamide AdvReac Intermediate DISORIENTAT Verified 12/17/22 11:35 Antibiotics) ION Home Medications Medication Instructions Recorded Confirmed Type dofetilide 500 mcg capsule 500 mcg PO BID 12/20/18 04/19/23 History (Tikosyn) levalbuterol tartrate 45 1 puff inhalation DAILY PRN 03/23/22 04/19/23 Rx mcg/actuation aerosol inhaler Shortness Of Breath Or Wheezing #15 grams sacubitril 24 mg-valsartan 26 mg 1 tab PO BID #60 tabs 08/12/22 04/19/23 Rx tablet (Entresto) apixaban 5 mg tablet (Eliquis) 5 mg PO BID 12/17/22 04/19/23 History amoxicillin 875 mg-potassium 1 tab PO BID #14 tabs 04/18/23 04/19/23 Rx clavulanate 125 mg tablet Past Med/Surg History Medical History History of anesthesia reaction does not take much anesthesia to put her to sleep; difficulty waking Osteoarthritis Diverticular disease Basal cell carcinoma removed in office History of COVID-19 x2 02/2022 and last 07/09/22--sinus type symptoms (congestion/slight cough)--no symptoms now Osteoarthritis of left knee Obesity (BMI 30-39.9) Obstructive sleep apnea Using CPAP Left knee pain Osteoarthritis of knee Rosacea Paroxysmal atrial fibrillation on eliquis/dofetilide--follows with Dr. Roca External hemorrhoids Chronic anticoagulation eliquis Surgical History S/P left breast biopsy (2012) sterotactic History of colonoscopy (~2006) History of cataract surgery (2016) bilt H/O dilation and curettage History of cardiac radiofrequency ablation (05/2019) x2--first done 2014 and 05/2019 Previous section [place] teeth extracted Family History Father Prostate cancer Diabetes Bladder cancer Mother Lung disease Cancer Hypertension Brother Diabetes Grandmother (Paternal) Myocardial infarction Grandfather (Maternal) Myocardial infarction Grandmother (Maternal) Stroke Other Anemia No family history of adverse response to anesthesia Denies family history of Ovarian cancer Lung cancer Colorectal cancer Social History Smoking Status: Never smoker Age Started Using Tobacco: 17; Age Quit Using Tobacco: 40; packs per day: 1; Second Hand Exposure: No; Do You Dip or Chew Tobacco: No; Hx Alcohol Use: Yes Alcohol type: wine and hard liquor Alcohol Intake Frequency: 2-4 x/Month Hx Substance Use: No Preferred Language: Malay Communication Ability: Effective Visual Impairment: Limited Hearing Ability: Normal 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 Required: No Beliefs That Will Affect Care: None marital status: Current Living Situation: Spouse and Family current occupational status: retired 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[employer], 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 How many Children do You have: 1 Feels Safe at Home: Yes Childhood Exposure to Second-Hand Smoke: No caffeine: Yes (rarely) Dental Care, Regularly: Yes Physical Activity Frequency: Daily Seatbelt Use: always Sunscreen Use: Yes Assistive Devices: Glasses Review of Systems Review of Systems: All systems reviewed & are unremarkable except as noted in HPI & below Physical Exam Physical Exam: General: patient resting comfortably, NAD, non-toxic in appearance, AA&O x 4 Skin: warm, dry, intact, no rashes or lesions HEENT: NC/AT, PERRL, EOMI, anicteric sclera, conjunctiva without injection, external ear normal to inspection and nontender, nares patent, moist mucus membranes, dentition intact, no oropharyngeal lesions, neck supple, trachea midline, no LAD, no thyromegaly, no JVD Heart: +S1/S2, regular, no m/r/g Lungs: equal air entry bilaterally, no rales/rhonchi/wheezes Abd: +BS, soft, ND, tenderness in the RUQ without rebound/guarding/peritonitis, no masses/organomegaly/ascites Ext: warm, 2+ pulses in UE/LE bilaterally, no clubbing/cyanosis or edema Neuro: nonfocal, patient AA&O x 4, speech intact, no facial droop, moving all extremities on command with equal strength 5/5 Results & Data Results & Data Vital Signs (Past 12 Hours) Vital Signs Temp Pulse Pulse Resp BP BP Pulse Ox 04/19/23 00:47 72 04/19/23 00:00 80 13 93 04/19/23 00:00 128/90 04/18/23 23:30 64 18 96 04/18/23 23:30 114/69 04/18/23 23:20 78 04/18/23 22:00 65 13 135/79 98 04/18/23 21:30 71 14 145/82 H 98 04/18/23 21:18 77 12 04/18/23 20:43 75 15 99 04/18/23 20:43 73 04/18/23 20:43 04/18/23 20:43 70 14 153/77 H 98 04/18/23 20:43 04/18/23 16:09 36.9 C 86 20 168/95 H 98 O2 Del Method 04/19/23 00:47 04/19/23 00:00 04/19/23 00:00 04/18/23 23:30 04/18/23 23:30 04/18/23 23:20 04/18/23 22:00 04/18/23 21:30 04/18/23 21:18 04/18/23 20:43 04/18/23 20:43 04/18/23 20:43 Room Air 04/18/23 20:43 Room Air 04/18/23 20:43 Room Air 04/18/23 16:09 Room Air Laboratory Results Laboratory Results WBC 8.81 K/ul (4.8-10.8) 04/18/23 16:19 RBC 5.37 M/uL (4.20-5.40) 04/18/23 16:19 Hgb 14.6 g/dl (12.0-16.0) 04/18/23 16:19 Hct 45.5 % (37.0-47.0) 04/18/23 16:19 MCV 84.7 fL (80.0-100.0) 04/18/23 16:19 MCH 27.2 pg (25.0-34.0) 04/18/23 16:19 MCHC 32.1 g/dL (32.0-36.0) 04/18/23 16:19 RDW Std Deviation 39.8 fL (36.4-46.3) 04/18/23 16:19 RDW Coeff of Anna 12.9 % (11.5-14.5) 04/18/23 16:19 Plt Count 389 K/uL (130-400) 04/18/23 16:19 MPV 9.1 fL (9.4-12.4) L 04/18/23 16:19 Immature Gran % (Auto) 0.8 % 04/18/23 16:19 Neut % (Auto) 67.9 % 04/18/23 16:19 Lymph % (Auto) 24.5 % 04/18/23 16:19 [place] % (Auto) 6.0 % 04/18/23 16:19 Eos % (Auto) 0.5 % 04/18/23 16:19 Baso % (Auto) 0.3 % 04/18/23 16:19 Neut # (Auto) 5.98 K/uL (1.40-6.50) 04/18/23 16:19 Lymph # (Auto) 2.16 K/uL (1.20-3.40) 04/18/23 16:19 [place]pine # (Auto) 0.53 K/uL (0.11-0.59) 04/18/23 16:19 Eos # (Auto) 0.04 K/uL (0.00-0.50) 04/18/23 16:19 Baso # (Auto) 0.03 K/uL (0.00-0.20) 04/18/23 16:19 Immature Gran # (Auto) 0.07 K/uL (0.01-0.20) 04/18/23 16:19 PT 10.8 Seconds (9.0-12.0) 04/18/23 16:19 INR 1.0 (0.9-1.1) 04/18/23 16:19 APTT 37.9 Seconds (21.0-31.0) H 04/18/23 16:19 PTT Ratio 1.3 04/18/23 16:19 D-Dimer 390 ug/L FEU (0-500) 04/18/23 16:19 Sodium 140 mmol/L (136-145) 04/18/23 16:19 Potassium 3.7 mmol/L (3.5-5.1) 04/18/23 16:19 Chloride 104 mmol/L (98-107) 04/18/23 16:19 Carbon Dioxide 27 mmol/L (21-32) 04/18/23 16:19 Anion Gap 9 (3-11) 04/18/23 16:19 BUN 8 mg/dl (6-23) 04/18/23 16:19 Creatinine 0.75 mg/dl (0.6-1.2) 04/18/23 16:19 Est Cr Clr Drug Dosing 74.6 ml/min 04/18/23 16:19 Est GFR ( Amer) 95.6 ml/min 04/18/23 16:19 Est GFR (Non-Af Amer) 82.5 ml/min 04/18/23 16:19 BUN/Creatinine Ratio 10.7 (10-20) 04/18/23 16:19 Glucose 121 mg/dl (70-99(Fasting)) H 04/18/23 16:19 Calcium 9.1 mg/dl (8.6-10.3) 04/18/23 16:19 Total Bilirubin 0.6 mg/dl (0.2-1.0) 04/18/23 16:19 AST 30 U/L (13-39) 04/18/23 16:19 ALT 19 U/L (7-52) 04/18/23 16:19 Alkaline Phosphatase 81 U/L (34-104) 04/18/23 16:19 Troponin I High Sens 4.7 pg/ml (0-14) 04/18/23 18:57 Total Protein 7.6 gm/dl (6.0-8.3) 04/18/23 16:19 Albumin 4.4 gm/dl (3.4-5.0) 04/18/23 16:19 Globulin 3.2 gm/dl (2.5-4.0) 04/18/23 16:19 Albumin/Globulin Ratio 1.4 (0.9-2) 04/18/23 16:19 Lipase 25 U/L (11-82) 04/18/23 16:19 Adenovirus (PCR) Not Detected (NotDetected) 04/18/23 21:21 B. pertussis DNA (PCR) Not Detected (NotDetected) 04/18/23 21:21 B.parapertussis DNA PCR Not Detected (NotDetected) 04/18/23 21:21 C. pneumoniae DNA (PCR) Not Detected (NotDetected) 04/18/23 21:21 Coronavirus OC43 (PCR) Not Detected (NotDetected) 04/18/23 21:21 Coronavirus HKU1 (PCR) Not Detected (NotDetected) 04/18/23 21:21 Coronavirus 229E (PCR) Not Detected (NotDetected) 04/18/23 21:21 SARS-CoV-2 (PCR) Not Detected (NotDetected) 04/18/23 21:21 Coronavirus NL63 (PCR) Not Detected (NotDetected) 04/18/23 21:21 Human Metapneumovir PCR Not Detected (NotDetected) 04/18/23 21:21 Influenza Type A (PCR) Not Detected (NotDetected) 04/18/23 21:21 Influenza Type B (PCR) Not Detected (NotDetected) 04/18/23 21:21 M. pneumoniae (PCR) Not Detected (NotDetected) 04/18/23 21:21 Parainfluenza 1 (PCR) Not Detected (NotDetected) 04/18/23 21:21 Parainfluenza 2 (PCR) Not Detected (NotDetected) 04/18/23 21:21 Parainfluenza 3 (PCR) Not Detected (NotDetected) 04/18/23 21:21 Parainfluenza 4 (PCR) Not Detected (NotDetected) 04/18/23 21:21 RSV (PCR) Not Detected (NotDetected) 04/18/23 21:21 Entero/Rhino (PCR) Not Detected (NotDetected) 04/18/23 21:21 Impressions Chest X-Ray 04/18/23 16:11 TWO VIEW CHEST CLINICAL HISTORY: Atypical chest pain. FINDINGS: PA and lateral chest radiographs are compared to study dated 05/24/2012. The cardiomediastinal silhouette is unremarkable. The lungs and pleural spaces are clear. There is no pneumothorax. The skeletal structures are osteopenic. The bony thorax appears intact. IMPRESSION: No active disease in the chest. ACT 112: Negative or not required by law. Electronically signed by: Be Berrios M.D. 04/18/2023 4:54 PM Abdomen/Pelvis CT 04/18/23 20:37 Exam(s): CT ABDOMEN + PELVIS With Contrast IV Amt: 90 ml optiray 320 EXAM: CT Abdomen and Pelvis With Intravenous Contrast CLINICAL HISTORY: Reason for exam: upper abd pain. TECHNIQUE: Axial computed tomography images of the abdomen and pelvis with intravenous contrast. CTDI is 25.82 mGy and DLP is 1117.61 mGy-cm. Automated exposure control was utilized for the study. A dose lowering technique was utilized adhering to the principles of ALARA. CONTRAST: Patient received 90 ml optiray 320 of IV contrast COMPARISON: No relevant prior studies available. FINDINGS: Lung bases: Unremarkable. No mass. No consolidation. ABDOMEN: Liver: Hepatic steatosis. Gallbladder and bile ducts: Cholelithiasis. No ductal dilation. Pancreas: Unremarkable. No mass. No ductal dilation. Spleen: Unremarkable. No splenomegaly. Adrenals: Unremarkable. No mass. Kidneys and ureters: Unremarkable. No solid mass. No hydronephrosis. Stomach and bowel: Diverticulosis, without acute diverticulitis. No small bowel obstruction. No free intraperitoneal air. PELVIS: Appendix: Normal appendix. Bladder: Unremarkable. No mass. Reproductive: Unremarkable as visualized. ABDOMEN and PELVIS: Intraperitoneal space: Unremarkable. No free air. No significant fluid collection. Bones/joints: No acute fracture. No dislocation. Soft tissues: Unremarkable. Vasculature: Unremarkable. No abdominal aortic aneurysm. Lymph nodes: Unremarkable. No enlarged lymph nodes. IMPRESSION: 1. Normal appendix. 2. Hepatic steatosis. 3. Cholelithiasis. Ultrasound recommended. 4. Diverticulosis, without acute diverticulitis. No small bowel obstruction. No free intraperitoneal air. Electronically signed by: Shane Carmen MD 04/18/23 21:21 PM Gallbladder Ultrasound 04/18/23 21:43 Exam(s): US GALLBLADDER EXAM: US Abdomen Limited, Gallbladder CLINICAL HISTORY: Reason for exam: upper abd pain. TECHNIQUE: Real-time ultrasound of the right upper quadrant with image documentation. COMPARISON: No relevant prior studies available. FINDINGS: Gallbladder: Cholelithiasis. Gallbladder sludge. Mild pericholecystic free fluid. Gallbladder wall thickening measures 6 mm. Findings are consistent with acute cholecystitis. Common bile duct: 4 mm common bile duct. No stones. No dilation. Pancreas: Unremarkable as visualized. IMPRESSION: Cholelithiasis. Gallbladder sludge. Mild pericholecystic free fluid. Gallbladder wall thickening measures 6 mm. Findings are consistent with acute cholecystitis. Electronically signed by: Shane Carmen MD 04/19/23 00:14 AM PG Care Time/CCT Total # of Minutes Spent Total Time Spent with Patient: Total time spent is greater than 50% in coordination of care (as documented) at patient's floor/unit and/or counseling patient: Coding Level of Care Code 77909 INT INP/OBS CARE 2/55MIN Diagnoses Cholecystitis K81.9 Paroxysmal atrial fibrillation I48.0 Obstructive sleep apnea G47.33
[2023-04-19] MEDS ORDERED: LEVALBUTEROL TARTRATE 15 GM HFA.AER.AD INH PRN (01:57)
[2023-04-19] MEDS ORDERED: KETOROLAC TROMETHAMINE 15 MG/ML VIAL IV ONE (02:01)
[2023-04-19] MEDS ORDERED: ONDANSETRON INJ 2 MG/ML 2 ML VIAL IV STA (02:08)
[2023-04-19] MEDS ORDERED: PIPERACILLIN IV STA (02:12)
[2023-04-19] MEDS ORDERED: TAZOBACTAM IV STA (02:12)
[2023-04-19] MEDS ORDERED: PIPERACILLIN/TAZOBACTAM 4.5 GM/100 ML BAG IV STA ×2 (02:13→04:13)
[2023-04-19] MEDS: ACETAMINOPHEN 325 MG TAB PO PRN ×3 (05:57→22:56)
[2023-04-19] MEDS: DOFETILIDE 125 MCG CAPSULE PO SCH ×2 (08:28→20:16)
--- NOTE | 2023-04-19 08:36 | Hospitalist Progress Note ---
Date of Service April 19, 2023 Assessment & Plan (1) Cholecystitis: Plan: 67yo female with history of paroxysmal atrial fibrillation on Eliquis anticoagulation and Dofetilide, NINOSKA, HTN and HFpEF presenting with abdominal pain. Imaging suggestive of acute cholecystitis with presence of gallstones. -Continue to hold Apixaban. Last dose 04/18/23 at 20:00, needs to miss 3 doses could be for surgery as soon as 04/20 pm -Zosyn 4.5 gm IV q 8hr -Tylenol as needed for pain -Zofran as needed for nausea- cautious use with patient's Dofetilide -Appreciate General Surgery assistance -Clear liquid diet for now Parenteral Dilaudid for pain control - (2) Paroxysmal atrial fibrillation: Plan: Patient presently in sinus rhythm. s/p ablation at [facility], on Tikosyn -Hold Apixaban. Will not bridge anticoagulation at this time - [id number] score of 4 (Age 67, female with history of CHF and HTN) -Continue Dofetilide previous dyspnea with diastolic dysfunction, issues improved with entreseto, currently on hold, (3) Obstructive sleep apnea: Plan: Chronic. Stable -Continue CPAP qHS - nasal pillows, 7cmH2O Code - Full Admission and Anticipated Discharge Date Admission Date: April 19, 2023 Subjective Patient with mild intermittent right upper quadrant epigastric and back pain. Symptoms pain rating to her left shoulder. Was seen by surgery and planning on surgery for Tuesday evening or morning. Awaiting for her Eliquis to wash out of her system. Currently she is stable vital signs stable serologies. Physical Exam Physical Exam: Evaluate the patient in the emergency department. She had hypoactive bowel sounds she is tender in the epigastrium. Results & Data Results & Data Vital Signs (Past 12 Hours) Vital Signs Temp Pulse Pulse Resp BP BP Pulse Ox 04/19/23 06:56 98.1 F 67 16 134/64 97 04/19/23 06:01 73 17 166/82 H 97 04/19/23 04:24 79 17 128/70 96 04/19/23 02:23 95 04/19/23 01:30 67 14 124/76 96 04/19/23 01:00 72 21 97 04/19/23 01:00 139/98 04/19/23 00:47 72 04/19/23 00:30 68 17 93 04/19/23 00:30 114/67 04/19/23 00:00 80 13 93 04/19/23 00:00 128/90 04/18/23 23:30 64 18 96 04/18/23 23:30 114/69 04/18/23 23:20 78 04/18/23 22:00 65 13 135/79 98 04/18/23 21:30 71 14 145/82 H 98 04/18/23 21:18 77 12 04/18/23 20:43 75 15 99 04/18/23 20:43 73 04/18/23 20:43 04/18/23 20:43 70 14 153/77 H 98 04/18/23 20:43 O2 Del Method 04/19/23 06:56 Room Air 04/19/23 06:01 Room Air 04/19/23 04:24 Room Air 04/19/23 02:23 04/19/23 01:30 04/19/23 01:00 04/19/23 01:00 04/19/23 00:47 04/19/23 00:30 04/19/23 00:30 04/19/23 00:00 04/19/23 00:00 04/18/23 23:30 04/18/23 23:30 04/18/23 23:20 04/18/23 22:00 04/18/23 21:30 04/18/23 21:18 04/18/23 20:43 04/18/23 20:43 04/18/23 20:43 Room Air 04/18/23 20:43 Room Air 04/18/23 20:43 Room Air PG Care Time/CCT Total # of Minutes Spent Total Time Spent with Patient: Total time spent is greater than 50% in coordination of care (as documented) at patient's floor/unit and/or counseling patient: Coding Level of Care Code None Diagnoses Cholecystitis K81.9 Paroxysmal atrial fibrillation I48.0 Obstructive sleep apnea G47.33
[2023-04-19] MEDS ORDERED: ENOXAPARIN INJ 40 MG/0.4 ML SYR SQ SCH (09:00)
[2023-04-19] MEDS ORDERED: ONDANSETRON INJ 2 MG/ML 2 ML VIAL IV SCH (10:00)
[2023-04-19] MEDS: PIPERACILLIN/TAZOBACTAM 4.5 GM in DEXTROSE 5% MINI-B 100 ML IV SCH ×2 (10:13→18:25)
--- NOTE | 2023-04-19 13:51 | Electrocardiogram Report ---
Test Reason : Blood Pressure : / mmHG Vent. Rate : 088 BPM Atrial Rate : 088 BPM P-R Int : 128 ms QRS Dur : 082 ms QT Int : 362 ms P-R-T Axes : 027 -12 013 degrees QTc Int : 438 ms Normal sinus rhythm with PACs Minimal voltage criteria for LVH, may be normal variant Borderline ECG When compared with ECG of 08-DEC-2022 10:50, No significant change was found Confirmed by Teddy Madrigal ([id number]) on 04/19/2023 1:50:44 PM Referred By: REFERRED SELF Confirmed By:Michele Madrigal
[2023-04-19] MEDS ORDERED: HYDROmorphone INJ 1 MG/ML SYRINGE IV PRN (16:12)
[2023-04-19] MEDS ORDERED: HYDROmorphone INJ 0.5 MG/0.5 ML SYR IV PRN (16:12)
[2023-04-19] MEDS: ONDANSETRON INJ 2 MG/ML 2 ML VIAL IV PRN (18:26)
[2023-04-19] MEDS ORDERED: METOPROLOL TARTRATE 1 MG/ML VIAL IV STA (22:40)
[2023-04-20] MEDS: PIPERACILLIN/TAZOBACTAM 4.5 GM in DEXTROSE 5% MINI-B 100 ML IV SCH ×3 (02:19→18:41)
[2023-04-20] MEDS: ONDANSETRON INJ 2 MG/ML 2 ML VIAL IV PRN ×3 (02:20→11:13)
[2023-04-20] MEDS: ACETAMINOPHEN 325 MG TAB PO PRN ×2 (06:05→22:02)
[2023-04-20 07:33] LABS: Hematocrit (blood only) 42.4 % (37.0-47.0); Hemoglobin 13.7 g/dl (12.0-16.0); Mean Corpuscular Hemoglobin 26.9 pg (25.0-34.0); Mean Corpuscular Hgb Conc 32.3 g/dL (32.0-36.0); Mean Corpuscular Volume 83.3 fL (80.0-100.0); Mean Platelet Volume 9.1 fL (9.4-12.4); Platelet Count 336 K/uL (130-400); RDW Coefficient of Variation 12.9 % (11.5-14.5); Red Blood Count 5.09 M/uL (4.20-5.40); White Blood Count 9.55 K/ul (4.8-10.8)
[2023-04-20 07:57] LABS: Albumin Level 3.9 gm/dl (3.4-5.0); BUN Creatinine Ratio 9.4 (10-20); Bilirubin Direct 0.1 mg/dl (0-0.2); Bilirubin,Total 0.9 mg/dl (0.2-1.0); Calcium 8.9 mg/dl (8.6-10.3); Creatinine Clr Calc Pharmacy 65.8 ml/min; Est GFR (African American) 82.2 ml/min; Est GFR (Non-African American) 70.9 ml/min; Total Protein 6.9 gm/dl (6.0-8.3)
[2023-04-20] MEDS: DOFETILIDE 125 MCG CAPSULE PO SCH ×2 (09:04→21:12)
--- NOTE | 2023-04-20 11:04 | Anesthesiology Consultation ---
Date of Service April 20, 2023 Assessment & Plan Chart Review Chart Review: Acceptable Risk for Surgery and Patient NOT seen in Pre Admission Testing Consults Requested none ASA ASA3 Proposed Anesthesia Anesthesia Type: General History Surgery Operation Date: 04/20/23 12:00 Proposed Procedures p Laparoscopic Cholecystectomy, Possible Open, Possible Intraoperative Cholangiogram - Kike Soler, Height/Weight Height: 5 ft 4 in Weight: 80.2 kg Allergies Allergy/AdvReac Type Severity Reaction Status Date / Time nitrofurantoin Allergy Severe ANAPHYLAXIS Verified 12/17/22 11:35 Tetanus Vaccines and Toxoid Allergy Severe "large Verified 12/17/22 11:35 lump on arm that lasted for months" Calcium Channel Blocking Allergy Intermediate severe leg Verified 12/17/22 11:35 Agent Dilt swelling thimerosal Allergy Intermediate red, Verified 12/17/22 11:35 painful eyes clindamycin Allergy Unknown Unknown Verified 12/17/22 11:35 cephalexin [From Keflex] AdvReac Intermediate Gastrointestinal Verified 12/17/22 11:35 Upset ciprofloxacin [From Cipro] AdvReac Intermediate Gastrointestinal Verified 12/17/22 11:35 Upset Sulfa (Sulfonamide AdvReac Intermediate DISORIENTAT Verified 12/17/22 11:35 Antibiotics) ION Medications Home Medications Medication Instructions Recorded Confirmed Last Taken dofetilide 500 mcg capsule 500 mcg PO BID 12/20/18 04/19/23 12/08/22 (Tikosyn) levalbuterol tartrate 45 1 puff inhalation DAILY PRN 03/23/22 04/19/23 Unknown mcg/actuation aerosol inhaler Shortness Of Breath Or Wheezing #15 grams sacubitril 24 mg-valsartan 26 mg 1 tab PO BID #60 tabs 08/12/22 04/19/23 12/08/22 tablet (Entresto) apixaban 5 mg tablet (Eliquis) 5 mg PO BID 12/17/22 04/19/23 Unknown amoxicillin 875 mg-potassium 1 tab PO BID #14 tabs 04/18/23 04/19/23 Unknown clavulanate 125 mg tablet Active Medications Generic Name Dose Route Start Last Admin Trade Name Freq PRN Reason Stop Dose Admin Acetaminophen 650 mg 04/19/23 01:57 04/20/23 06:05 Acetaminophen 325 Mg Tab PO 05/19/23 01:56 650 mg Q4H PRN Administration Pain or Fever Dofetilide 500 mcg 04/19/23 09:00 04/20/23 09:04 Dofetilide 125 Mcg Capsule PO 05/19/23 08:59 500 mcg BID MAGDA Administration Hydromorphone HCl 0.5 mg 04/19/23 16:12 04/19/23 16:55 Hydromorphone Inj 0.5 Mg/0.5 Ml Syr IV 05/03/23 16:11 0.5 mg Q4H PRN Administration Pain Scale 4,5,6 Piperacillin Sod/Tazobactam 100 mls @ 25 mls/hr 04/19/23 08:00 04/20/23 06:27 Sod 4.5 gm/ Dextrose IV 04/29/23 07:59 Infused Q8H MAGDA Infusion Protocol Ondansetron HCl 2 mg 04/19/23 13:34 04/20/23 02:20 Ondansetron Inj 2 Mg/Ml 2 Ml Vial IV 05/19/23 13:33 2 mg Q6H PRN Administration Nausea Past Medical History Medical History History of anesthesia reaction does not take much anesthesia to put her to sleep; difficulty waking Osteoarthritis Diverticular disease Basal cell carcinoma removed in office History of COVID-19 x2 02/2022 and last 07/09/22--sinus type symptoms (congestion/slight cough)--no symptoms now Osteoarthritis of left knee Obesity (BMI 30-39.9) Obstructive sleep apnea Using CPAP Left knee pain Osteoarthritis of knee Rosacea Paroxysmal atrial fibrillation on eliquis/dofetilide--follows with Dr. Roca External hemorrhoids Chronic anticoagulation eliquis Exercise / Class Metabolic Activity II 4-5 Yardwork/Stairs/Walk up hill Past Family History Family History Father Prostate cancer Diabetes Bladder cancer Mother Lung disease Cancer Hypertension Brother Diabetes Grandmother (Paternal) Myocardial infarction Grandfather (Maternal) Myocardial infarction Grandmother (Maternal) Stroke Other Anemia No family history of adverse response to anesthesia Denies family history of Ovarian cancer Lung cancer Colorectal cancer Past Surgical History Surgical History S/P left breast biopsy (2012) sterotactic History of colonoscopy (~2006) History of cataract surgery (2016) bilt H/O dilation and curettage History of cardiac radiofrequency ablation (05/2019) x2--first done 2014 and 05/2019 Previous section [place] teeth extracted Past Anesthesia History No Hx of Anesthesia Complications and No Family Hx of Anesthesia Complications History of PONV No Hx of PONV and No Hx of Motion Sickness Social History Smoking Status: Former smoker Do You Dip or Chew Tobacco: No Hx Alcohol Use: Yes Alcohol type: wine and hard liquor alcohol intake frequency: holidays/special occasions only Hx Substance Use: No substance use type: does not use Physical Exam Vital Signs Last Vital Signs Temp 37.0 C 04/20/23 07:57 Pulse 67 04/20/23 07:57 Resp 16 04/20/23 07:57 BP 137/82 04/20/23 07:57 Pulse Ox 96 04/20/23 07:57 O2 Del Method Room Air 04/20/23 07:57 Testing Laboratory Results 04/20/23 07:08 04/20/23 07:08 PT 10.8 Seconds (9.0-12.0) 04/18/23 16:19 INR 1.0 (0.9-1.1) 04/18/23 16:19 APTT 37.9 Seconds (21.0-31.0) H 04/18/23 16:19 Electrocardiogram Date: 04/18/23 Findings: + NSR @ (@ 88 w/ PAC's;LVH) Chest X-Ray Date: 04/18/23 Findings: + NAD
--- NOTE | 2023-04-20 11:49 | Surgery Progress Note ---
Date of Service April 20, 2023 Assessment & Plan (1) Cholecystitis: Plan: Her labs were reviewed today, LFT's still normal Will proceed with laparoscopic cholecystectomy, possible open, possible IOC today Consent was obtained, risks discussed including, bleeding, infection, bile leak, ductal injury (2) Cholelithiasis: Admission and Anticipated Discharge Date Admission Date: April 19, 2023 Subjective Pt seen and examined. Feeling better. Still with some abdominal pain. Afebrile. Review of Systems Constitutional: no fever and no chills Physical Exam Constitutional: WD/WN, vitals as above Gastrointestinal (Abdomen): Inspection/Auscultation: abdomen normal to inspection; abdomen not distended Percussion/Palpation: + abdomen tender (RUQ) and abdomen soft; no guarding and abdomen not rigid Musculoskeletal: no cyanosis or clubbing, extremities motor strength 5/5 Skin: no rashes, warm and dry Neurologic: PERRL, EOMI, accommodation nl, no face palsy, no dysarthria Psychiatric: A+Ox3, euthymic affect Results & Data Vital Signs (Past 12 Hours) Vital Signs Temp Pulse Resp BP Pulse Ox O2 Del Method 04/20/23 11:30 36.9 C 78 18 151/79 H 100 Room Air 04/20/23 07:57 37.0 C 67 16 137/82 96 Room Air PG Care Time/CCT Total # of Minutes Spent Total Time Spent with Patient: Total time spent is greater than 50% in coordination of care (as documented) at patient's floor/unit and/or counseling patient: Coding Level of Care Code 79045 SUB INP/OBS CARE 2/35MIN Diagnoses Cholecystitis K81.9 Calculus of gallbladder with acute cholecystitis without obstruction K80.00 Cholelithiasis location: gallbladder Cholecystitis presence: with cholecystitis Cholecystitis acuity: acute Biliary obstruction: without biliary obstruction (2) Cholelithiasis Cholelithiasis location: gallbladder Cholecystitis presence: with cholecystitis Cholecystitis acuity: acute Biliary obstruction: without biliary obstruction Qualified Code(s): K80.00 - Calculus of gallbladder with acute cholecystitis without obstruction
[2023-04-20] MEDS ORDERED: ePHEDrine sulfate 50 MG/ML AMP IV PRN (13:09)
[2023-04-20] MEDS ORDERED: FLUMAZENIL 0.1 MG/1 ML 10 ML VIAL IV PRN (13:09)
[2023-04-20] MEDS ORDERED: ATROPINE SULFATE 0.1 MG/ML 10ML SYR IV PRN (13:09)
[2023-04-20] MEDS ORDERED: PROMETHAZINE HCL 12.5 MG in SODIUM CHLORIDE 0.9% 50 ML IV PRN (13:09)
[2023-04-20] MEDS ORDERED: NALOXONE HCL 0.4 MG/1 ML VIAL/CARP IV PRN (13:09)
[2023-04-20] MEDS ORDERED: fentaNYL citrate PF 100 MCG/2 ML VIAL ONE ×2 (13:30→14:34)
[2023-04-20] MEDS ORDERED: PROPOFOL IV EMULSION 10 MG/ML 20 ML VIAL IV ONE (13:30)
[2023-04-20] MEDS ORDERED: ONDANSETRON INJ 2 MG/ML 2 ML VIAL ONE (13:30)
[2023-04-20] MEDS ORDERED: BUPIVACAINE/EPINEPHRINE 0.25% 1:200,000 30 ML VIAL ONE (13:32)
[2023-04-20] MEDS ORDERED: ROCURONIUM BROMIDE 10 MG/ML 5 ML VIAL IV ONE (14:27)
[2023-04-20] MEDS ORDERED: GLYCOPYRROLATE 0.2 MG/ML VIAL ONE (14:27)
[2023-04-20] MEDS ORDERED: NEOSTIGMINE METHYLSULFATE 1 MG/ML 10ML VIAL ONE (14:27)
--- NOTE | 2023-04-20 15:06 | Post Operative Brief Note ---
PG Immediate Post Op with CF Date of Surgery April 20, 2023 Pre & Post Diagnosis Operation Date: 04/20/23 12:00 Pre-Op Diagnosis: Acute Cholecystitis Post-Op Diagnosis: Acute Cholecystitis I identified the patient and participated in the time-out.: Yes Procedure Operation Date: 04/20/23 12:00 Actual Procedures p Laparoscopic Cholecystectomy(Not Applicable) - Kike Soler DO Surgeon Kike Soler DO Trading Analyst John WHITFIELD Estimated Blood Loss 25 Findings See Below Distended, acutely inflamed gallbladder with thickened wall Specimens Specimen Description: A. Gallbladder and contents Anesthesia Type General Complications none Disposition Disposition: Recovery Room
--- NOTE | 2023-04-20 15:09 | Operative Report ---
PG Post Operative Report Pre & Post Diagnosis Operation Date: 04/20/23 12:00 Pre-Op Diagnosis: Acute Cholecystitis Post-Op Diagnosis: Acute Cholecystitis I identified the patient and participated in the time-out.: Yes Procedure Operation Date: 04/20/23 12:00 Actual Procedures p Laparoscopic Cholecystectomy(Not Applicable) - Kike Soler DO Surgeon Kike Soler DO Health Insurance Sales Agent John WHITFIELD Estimated Blood Loss 25 Findings See Below Distended, acutely inflamed gallbladder with thickened wall Fluids see anesthesia record Specimens Gallbladder to pathology Drains None Anesthesia Type General Complications none Disposition Disposition: Recovery Room Indications 67 yo female with acute cholecystitis Description of Procedure The patient was brought to the operating room and placed in the supine position with both arms extended. At this time she underwent general endotracheal anesthesia without any problems. She was given appropriate pre-operative antibiotics. Her abdomen prepped and draped in the usual sterile fashion. A timeout was called, the procedure was verified as Laparoscopic cholecystectomy, possible open, possible intra-operative cholangiogram. Surgical, nursing and anesthesia teams agreed and the procedure was begun. After injection of 0.25% Marcaine with epinephrine, a supraumbilical vertical incision was made and carried down to the fascia using S-retractors. The abdominal wall was then elevated with towel clamps and abdomen entered using the Veress needle confirming position using the saline drop test. Pneumoperitoneum was established. 5mm trocar was placed. Laparoscope was introduced. No injury from entry into the abdomen was visualized after inspection of the abdomen. Three further ports were placed under direct visualization. One 11mm in the subxiphoid region and two 5mm in the RUQ. At this time the abdomen was inspected and the gallbladder identified. Omental adhesions to the gallbladder were lysed using sharp and blunt dissection. The gallbladder itself was distended, acutely inflamed and had a thickened wall consistent with acute cholecystitis. The gallbladder was decompressed using a large bore needle and suction. The gallbladder fundus was grasped and retracted cephalad. The gallbladder infundibulum was then grasped and retracted laterally. The cystic duct and cystic artery were then identified and skeletonized. The critical view of safety was obtained. They were both then clipped twice proximally and once distally and then divided using scissors. The gallbladder was then taken off of the liver bed using electrocautery and placed in an endocatch bag and removed from the subxiphoid port. The liver bed was then inspected and no bile leak or bleeding was evident. The trocars were then removed under direct visualization and no bleeding was present. The subxiphoid port was then closed using 0-Vicryl suture at the fascial level. Abdomen was desufflated. The skin was then closed using 4-0 Monocryl in a subcuticular fashion. Surgical glue was applied. Nee dle and sponge counts were correct x 2. At this time the patient was awoken from anesthesia and extubated having remained stable throughout the entire case. The patient was then transported to PACU in stable condition. The nurse practitioner was present and scrubbed for the entire case. She was essential in positioning, prepping and draping the patient, driving the laparoscope, retraction and exposure, closure of the incisions and placement of the dressings. I attest to the content of the Intraoperative Record and any orders documented therein. Any exceptions are noted below.
--- NOTE | 2023-04-20 15:09 | Hospitalist Progress Note ---
Date of Service April 20, 2023 Assessment & Plan (1) Cholecystitis: Plan: 67yo female with history of paroxysmal atrial fibrillation on Eliquis anticoagulation and Dofetilide, NINOSKA, HTN and HFpEF presenting with abdominal pain. Imaging suggestive of acute cholecystitis with presence of gallstones. -Continue to hold Apixaban. Last dose 04/18/23 at 20:00, taken to the OR at noon on 04/20/2023 - continues on Zosyn 4.5 gm IV q 8hr -Tylenol as needed for pain -Zofran as needed for nausea- cautious use with patient's Dofetilide -Appreciate General Surgery assistance -Clear liquid diet for now Parenteral Dilaudid for pain control - (2) Paroxysmal atrial fibrillation: Plan: Patient presently in sinus rhythm. s/p ablation at [facility], on Tikosyn -Hold Apixaban. Will not bridge anticoagulation at this time - [id number] score of 4 (Age 67, female with history of CHF and HTN) -Continue Dofetilide previous dyspnea with diastolic dysfunction, issues improved with entreseto, currently on hold, (3) Obstructive sleep apnea: Plan: Chronic. Stable -Continue CPAP qHS - nasal pillows, 7cmH2O Code - Full Admission and Anticipated Discharge Date Admission Date: April 19, 2023 Subjective patient was having increased pain over the last 24 hours. She is taking to the operating room today and had acute cholecystectomy for cholecystitis. Physical Exam Physical Exam: Patient was awake and alert. Pain was controlled by parenteral opiates. Results & Data Results & Data Vital Signs (Past 12 Hours) Vital Signs Temp Pulse Resp BP Pulse Ox O2 Del Method 04/20/23 11:30 98.4 F 78 18 151/79 H 100 Room Air 04/20/23 07:57 98.6 F 67 16 137/82 96 Room Air Laboratory Results reviewed CBC reviewed chemistry PG Care Time/CCT Total # of Minutes Spent Total Time Spent with Patient: Total time spent is greater than 50% in coordination of care (as documented) at patient's floor/unit and/or counseling patient: Coding Level of Care Code 83149 SUB INP/OBS CARE 2/35MIN Diagnoses Cholecystitis K81.9 Paroxysmal atrial fibrillation I48.0 Obstructive sleep apnea G47.33
[2023-04-20] MEDS: fentaNYL citrate PF 100 MCG/2 ML VIAL IV PRN ×4 (15:39→15:55)
--- NOTE | 2023-04-20 15:46 | Anesthesiology Progress Note ---
Date of Service April 20, 2023 Anesthesia Post Procedure Vital Signs Vital Signs: Temp Pulse Pulse Resp BP Pulse Ox O2 Del Method 04/20/23 15:35 74 17 133/79 100 Oxymask 04/20/23 15:25 85 15 148/52 H 99 Oxymask 04/20/23 15:19 98.2 F 91 H 16 159/76 H 99 Oxymask 04/20/23 11:30 98.4 F 78 18 151/79 H 100 Room Air 04/20/23 07:57 98.6 F 67 16 137/82 96 Room Air 04/19/23 20:47 98.1 F 66 16 146/84 H 97 Room Air 04/19/23 19:30 65 15 96 04/19/23 19:00 67 16 95 04/19/23 18:40 77 13 95 O2 Flow Rate 04/20/23 15:35 3 04/20/23 15:25 5 04/20/23 15:19 5 04/20/23 11:30 04/20/23 07:57 04/19/23 20:47 04/19/23 19:30 04/19/23 19:00 04/19/23 18:40 Pain Intensity Right Flank: Pain Intensity: 0 Transfer of Care Handoff Completed per policy Notes Mental Status: alert / awake / arousable and participated in evaluation Patient Amnestic to Procedure: Yes Nausea / Vomiting: adequately controlled Pain: adequately controlled Airway Patency, RR, SpO2: stable & adequate BP & HR: stable & adequate Hydration State: stable & adequate Anesthetic Complications: no major complications apparent and Pt Satisfied with anesthetic care
[2023-04-20] MEDS: HYDROmorphone INJ 1 MG/ML SYRINGE IV PRN ×4 (16:07→16:22)
[2023-04-20] MEDS ORDERED: oxyCODONE HCL IR 5 MG TAB (IMMEDIATE RELEASE) PO PRN (17:07)
[2023-04-21] MEDS: PIPERACILLIN/TAZOBACTAM 4.5 GM in DEXTROSE 5% MINI-B 100 ML IV SCH ×3 (02:25→18:12)
[2023-04-21] MEDS: ACETAMINOPHEN 325 MG TAB PO PRN ×3 (02:35→20:04)
[2023-04-21 07:36] LABS: Basophils # (auto) 0.03 K/uL (0.00-0.20); Basophils % (auto) 0.3 %; Eosinophils # (auto) 0.04 K/uL (0.00-0.50); Eosinophils % (auto) 0.4 %; Hematocrit (blood only) 36.7 % (37.0-47.0); Immature Granulocytes # (auto) 0.05 K/uL (0.01-0.20); Immature Granulocytes % (auto) 0.5 %; Lymphocytes # (auto) 2.48 K/uL (1.20-3.40); Lymphocytes % (auto) 26.6 %; Mean Corpuscular Hemoglobin 27.2 pg (25.0-34.0); Mean Corpuscular Hgb Conc 32.7 g/dL (32.0-36.0); Mean Corpuscular Volume 83.2 fL (80.0-100.0); Mean Platelet Volume 9.2 fL (9.4-12.4); Monocytes % (auto) 8.6 %; Neutrophils # (auto) 5.91 K/uL (1.40-6.50); Neutrophils % (auto) 63.6 %; Platelet Count 315 K/uL (130-400); RDW Coefficient of Variation 13.2 % (11.5-14.5); Red Blood Count 4.41 M/uL (4.20-5.40); White Blood Count 9.31 K/ul (4.8-10.8)
[2023-04-21 07:51] LABS: Albumin Globulin Ratio 1.3 (0.9-2); Albumin Level 3.5 gm/dl (3.4-5.0); BUN Creatinine Ratio 11.1 (10-20); Bilirubin,Total 0.8 mg/dl (0.2-1.0); Calcium 8.5 mg/dl (8.6-10.3); Creatinine Clr Calc Pharmacy 56.5 ml/min; Est GFR (African American) 68.3 ml/min; Globulin 2.6 gm/dl (2.5-4.0); Potassium 3.8 mmol/L (3.5-5.1); Total Protein 6.1 gm/dl (6.0-8.3)
[2023-04-21] MEDS: DOFETILIDE 125 MCG CAPSULE PO SCH ×2 (08:46→20:49)
--- NOTE | 2023-04-21 10:43 | Surgery Progress Note ---
Date of Service April 21, 2023 Assessment & Plan (1) Cholecystitis: Plan: She is doing well 1 day postop lap savannah Advance her diet as tolerated Can transition her to p.o. antibiotics upon discharge for a 10-day course If she tolerates her lunch and is feeling up to it, I am okay with her being discharged later this afternoon versus tomorrow As long as she is doing well she can resume her Eliquis on Tuesday evening Admission and Anticipated Discharge Date Admission Date: April 19, 2023 Subjective Patient seen and examined. Pain controlled. Afebrile. No acute events overnight. Physical Exam Constitutional: WD/WN, vitals as above Gastrointestinal (Abdomen): Soft, appropriately tender to palpation Upper abdominal incisional dressing is clean dry and intact Umbilical dressing with bloody strikethrough, changed at bedside Results & Data Vital Signs (Past 12 Hours) Vital Signs Temp Pulse Resp BP Pulse Ox O2 Del Method 04/21/23 07:51 36.5 C 60 16 115/72 97 Room Air 04/21/23 03:13 36.7 C 65 14 130/77 95 Room Air 04/20/23 23:51 37.1 C 70 14 101/63 93 Room Air PG Care Time/CCT Total # of Minutes Spent Total Time Spent with Patient: Total time spent is greater than 50% in coordination of care (as documented) at patient's floor/unit and/or counseling patient: Coding Level of Care Code 69618 Post Operative Follow-Up Diagnoses Cholecystitis K81.9
--- NOTE | 2023-04-21 18:48 | Hospitalist Progress Note ---
Date of Service April 21, 2023 Assessment & Plan (1) Cholecystitis: Plan: 67yo female with history of paroxysmal atrial fibrillation on Eliquis anticoagulation and Dofetilide, NINOSKA, HTN and HFpEF presenting with abdominal pain. Imaging suggestive of acute cholecystitis with presence of gallstones. -Continue to hold Apixaban. Last dose 04/18/23 at 20:00, taken to the OR at noon on 04/20/2023 - continues on Zosyn 4.5 gm IV q 8hr -Tylenol as needed for pain -Zofran as needed for nausea- cautious use with patient's Dofetilide -Appreciate General Surgery assistance -regular diet placed. Parenteral Dilaudid for pain control - (2) Paroxysmal atrial fibrillation: Plan: Patient presently in sinus rhythm. s/p ablation at [facility], on Tikosyn -Hold Apixaban. Will not bridge anticoagulation at this time - [id number] score of 4 (Age 67, female with history of CHF and HTN) -Continue Dofetilide previous dyspnea with diastolic dysfunction, issues improved with entreseto, currently on hold, (3) Obstructive sleep apnea: Plan: Chronic. Stable -Continue CPAP qHS - nasal pillows, 7cmH2O Code - Full Admission and Anticipated Discharge Date Admission Date: April 19, 2023 Subjective 67 yo female reports no new symptoms. Tolerating diet. Review of Systems Review of Systems: All systems reviewed & are unremarkable except as noted in HPI & below Physical Exam Physical Exam: Patient was awake and alert. Pain was controlled. AbdL soft, NT, ND Results & Data Results & Data Vital Signs (Past 12 Hours) Vital Signs Temp Pulse Resp BP Pulse Ox O2 Del Method 04/21/23 14:56 36.6 C 84 16 113/73 100 Room Air 04/21/23 07:51 36.5 C 60 16 115/72 97 Room Air PG Care Time/CCT Total # of Minutes Spent Total Time Spent with Patient: Total time spent is greater than 50% in coordination of care (as documented) at patient's floor/unit and/or counseling patient: Coding Level of Care Code 60354 SUB INP/OBS CARE 2/35MIN Diagnoses Cholecystitis K81.9 Paroxysmal atrial fibrillation I48.0 Obstructive sleep apnea G47.33
[2023-04-22] MEDS: PIPERACILLIN/TAZOBACTAM 4.5 GM in DEXTROSE 5% MINI-B 100 ML IV SCH ×2 (01:55→10:09)
[2023-04-22] MEDS: ACETAMINOPHEN 325 MG TAB PO PRN (08:04)
[2023-04-22 08:11] LABS: Albumin Globulin Ratio 1.3 (0.9-2); Albumin Level 3.9 gm/dl (3.4-5.0); BUN Creatinine Ratio 10.9 (10-20); Bilirubin,Total 0.7 mg/dl (0.2-1.0); Calcium 8.8 mg/dl (8.6-10.3); Creatinine Clr Calc Pharmacy 55.4 ml/min; Est GFR (African American) 66.7 ml/min; Est GFR (Non-African American) 57.6 ml/min; Globulin 3.1 gm/dl (2.5-4.0); Potassium 3.4 mmol/L (3.5-5.1)
[2023-04-22 08:20] LABS: Hematocrit (blood only) 41.3 % (37.0-47.0); Hemoglobin 12.9 g/dl (12.0-16.0); Mean Corpuscular Hemoglobin 26.9 pg (25.0-34.0); Mean Corpuscular Hgb Conc 31.2 g/dL (32.0-36.0); Mean Corpuscular Volume 86.2 fL (80.0-100.0); Mean Platelet Volume 9.4 fL (9.4-12.4); Platelet Count 349 K/uL (130-400); RDW Coefficient of Variation 13.2 % (11.5-14.5); RDW Standard Deviation 41.2 fL (36.4-46.3); Red Blood Count 4.79 M/uL (4.20-5.40); White Blood Count 8.93 K/ul (4.8-10.8)
[2023-04-22] MEDS: DOFETILIDE 125 MCG CAPSULE PO SCH (08:41)
--- NOTE | 2023-04-22 10:12 | Surgery Progress Note ---
Date of Service April 22, 2023 Assessment & Plan (1) Cholecystitis: Plan: She is doing well tolerating her diet had a bowel movement Her labs are all stable She can be discharged from a surgical standpoint with a 10-day course of p.o. antibiotics Remove the dressings tomorrow She can start her Eliquis tonight I will arrange for follow-up as an outpatient Surgery will sign off at this time, please call with any questions or concerns Admission and Anticipated Discharge Date Admission Date: April 19, 2023 Subjective Patient seen and examined. Tolerating her diet. She had a bowel movement. Abdominal pain controlled. Physical Exam Constitutional: WD/WN, vitals as above Gastrointestinal (Abdomen): Soft, appropriately tender to palpation Dressings clean dry and intact Results & Data Vital Signs (Past 12 Hours) Vital Signs Temp Pulse Resp BP Pulse Ox O2 Del Method 04/22/23 07:55 Room Air 04/22/23 07:12 37.7 C H 87 18 113/74 92 Room Air PG Care Time/CCT Total # of Minutes Spent Total Time Spent with Patient: Total time spent is greater than 50% in coordination of care (as documented) at patient's floor/unit and/or counseling patient: Coding Level of Care Code 65556 Post Operative Follow-Up Diagnoses Cholecystitis K81.9
[2023-04-22] MEDS ORDERED: POTASSIUM CHLORIDE CRTAB 20 MEQ TABCR PO STA (11:43)
--- NOTE | 2023-04-22 11:44 | Discharge Summary ---
Date of Service April 22, 2023 Admission HPI Per Admitting Provider Heidi Trujillo is a pleasant 67yo female with history of PAF on Eliquis anticoagulation and Dofetilide, NINOSKA, GERD and HFpEF presenting from home with several weeks of intermittent abdominal pain. Patient reports she has had episodes of abdominal pain over the last several weeks - worse after meals. Today her pain was more severe than usual with radiation into her back. She has been having URI symptoms for the last several days as well - severe cough as well as fever and chills. She has been on Augmentin for the last several days. Last Eliquis dose was 04/18/23 at 20:00 ER Course: Tylenol NSS Principal Diagnosis cholecystitis Discharge Exam Patient was awake and alert. Pain was controlled. AbdL soft, NT, ND Discharge Data Allergies Allergy/AdvReac Type Severity Reaction Status Date / Time nitrofurantoin Allergy Severe ANAPHYLAXIS Verified 12/17/22 11:35 Tetanus Vaccines and Toxoid Allergy Severe "large Verified 12/17/22 11:35 lump on arm that lasted for months" Calcium Channel Blocking Allergy Intermediate severe leg Verified 12/17/22 11:35 Agent Dilt swelling thimerosal Allergy Intermediate red, Verified 12/17/22 11:35 painful eyes clindamycin Allergy Unknown Unknown Verified 12/17/22 11:35 cephalexin [From Keflex] AdvReac Intermediate Gastrointestinal Verified 12/17/22 11:35 Upset ciprofloxacin [From Cipro] AdvReac Intermediate Gastrointestinal Verified 12/17/22 11:35 Upset Sulfa (Sulfonamide AdvReac Intermediate DISORIENTAT Verified 12/17/22 11:35 Antibiotics) ION Consultations 04/19/23 00:37 ED Decision to Admit Stat 04/19/23 00:38 Consult General Surgery Routine Procedures Performed Operation Date: 04/20/23 12:00 Actual Procedures p Laparoscopic Cholecystectomy(Not Applicable) - Kike Soler DO Ordered Studies 04/18/23 20:37 CT Abd and Pelvis [CT abd pelvis IV con only] Stat 04/18/23 21:43 US gallbladder Stat Hospital Course (1) Cholecystitis: 67yo female with history of paroxysmal atrial fibrillation on Eliquis anticoagulation and Dofetilide, NINOSKA, HTN and HFpEF presenting with abdominal pain. Imaging suggestive of acute cholecystitis with presence of gallstones. -Continue to hold Apixaban. Last dose 04/18/23 at 20:00, taken to the OR at noon on 04/20/2023 - On Zosyn 4.5 gm IV q 8hr, will transition to augmentin for 9 more days. -Appreciate General Surgery assistance -regular diet placed. Pain controlled. - (2) Paroxysmal atrial fibrillation: Patient presently in sinus rhythm. s/p ablation at [facility], on Tikosyn -Hold Apixaban. Will not bridge anticoagulation at this time - [id number] score of 4 (Age 67, female with history of CHF and HTN) -Continue Dofetilide previous dyspnea with diastolic dysfunction, issues improved with entresto (3) Obstructive sleep apnea: Chronic. Stable -Continue CPAP qHS - nasal pillows, 7cmH2O Code - Full Total Time Total Time Spent Total Time Spent (In Minutes): 32 Discharge Plan Discharge Items Patient Disposition: Home - Self-Care Reason For Visit: ACUTE CHOLECYSTITIS Discharge Diagnosis: acute cholecystitis Activity: As commented below Lifting: No more than 25 pounds Bathing Comment: you can shower. No pool or baths for 2 weeks Exercise/Sports: Wait until after follow-up appointment Driving/Machine Use: no driving if taking narcotic pain medication Non-emergency contact: Surgeon Call non-emergency contact if: you have any medication questions, your symptoms worsen, your pain is unusual for you, your temperature is above 101, your wound has increased redness, your wound has increased drainage and your wound pain has increased Follow-up/Referrals: Kike Soler DO [Physician] - 05/06/23 9:00 am (call office for follow up in 2 weeks from discharge ) Lester Oliver DO [Primary Care Provider] - Diet: Low Fat Addtl Attending Provider Instructions: You may remove your outer surgical dressing on 04/22/23. You will have small white bandages on underneath that are over your incision. You may shower with these on. They will tend to fall off on their own in a 7-10 days. you can resume your Eliquis tonight Continue antibiotics for 9 more days. Take first dose tonight. As you have about 5 days worth at home, I will prescribe 4 more days of an tibiotics to complete 9 days. Pending Studies at Discharge: No Stand-Alone Forms: My [facility], Smoking Cessation Medications and DC Order Prescriptions: New acetaminophen 325 mg Tablet 650 mg PO Q4H PRN (Reason: pain) Qty: 60 0RF Continued Entresto 24-26 mg tablet 1 tab PO BID Qty: 60 2RF Eliquis 5 mg tablet 5 mg PO BID dofetilide [Tikosyn] 500 mcg capsule 500 mcg PO BID Rx Instructions: must be brand levalbuterol tartrate 45 mcg/actuation HFA aerosol inhaler 1 puff inhalation DAILY PRN (Reason: Shortness Of Breath Or Wheezing) Qty: 15 6RF amoxicillin-pot clavulanate 875-125 mg tablet 1 tab PO BID Qty: 8 0RF Discharge Orders: Discharge Order (Routine); Ordered 04/22/23 Ordered By: Andrey Bhagat/Other Patient Handouts: Low-Fat Cooking Tips, ED Diet, Low Fat Admission Data Admit Date/Time: 04/19/23 10:33 Attending Provider: Andrey Lee Admit Provider: Rosalba Sharma Primary Care Provider: Lester Oliver Other Providers: Rosalba Sharma; Kike Soler Other Interventions: Discharge Summary Assessment (RN) Last Done: 04/22/23 13:52 Coding Level of Care Code 06034 INP/OBS DISCH >30 MIN Diagnoses Cholecystitis K81.9 Paroxysmal atrial fibrillation I48.0 Obstructive sleep apnea G47.33
== END 2023-04-22 14:31 | disposition home or self-care (01) | DRG 418 ==
LOC: ED 16:07 → EDINP 16:07 → SUATTDRO 04-19 01:14 → 3W 04-19 01:56 → SUATTDRO 04-19 10:33 → 3W 04-19 20:26